=== PATIENT | male | born 1965 | race Caucasian/White ===

== ENCOUNTER 2020-10-22 08:23 | Inpatient (IN) | payer OTHER ==
[~2020-10-22] VITALS: Ht 180.3 cm; Wt 124.7 kg
--- NOTE | 2020-10-22 08:47 | NUR ---
dr wick at bedside for eval.
--- NOTE | 2020-10-22 09:09 | NUR ---
pt to radiology for abdominal ct scan via [facility].
[2020-10-22 09:40] LABS: BASOPHILS % (AUTO) 0.3 % (0.0-2.0); EOSINOPHILS % (AUTO) 0.8 % (0.0-6.0); HEMATOCRIT 24 % (39-51); HEMOGLOBIN 8.2 g/dL (13.5-17.5); LYMPHOCYTES # (AUTO) 0.3 /CMM (0.8-4.8); LYMPHOCYTES % (AUTO) 4.4 % (20.0-44.0); MEAN CORPUSCULAR HGB CONC 34 g/dl (31.0-36.0); MEAN CORPUSCULAR VOLUME 97 fL (80-96); MONOCYTES # (AUTO) 0.9 /CMM (0.1-1.30); MONOCYTES % (AUTO) 10.8 % (2.0-12.0); NEUTROPHILS # (AUTO) 6.7 /CMM (1.8-8.9); NEUTROPHILS % (AUTO) 83.7 % (43.0-81.0); PLATELET COUNT (AUTO) 139 /CMM (150-450); RED BLOOD CELL COUNT(AUTO) 2.51 MIL/uL (4.5-6.0)
[2020-10-22 10:16] LABS: ALBUMIN 2.4 g/dL (3.4-5.0); BILIRUBIN,DIRECT 1.1 mg/dL (0.0-0.2); BILIRUBIN,TOTAL 2.3 mg/dL (0.2-1.0); CALCIUM, SERUM 8.8 mg/dL (8.5-10.1); CREATININE 4.6 mg/dL (0.6-1.3); POTASSIUM 4.2 mmol/L (3.5-5.1); TOTAL PROTEIN, SERUM 5.4 g/dL (6.4-8.2)
--- NOTE | 2020-10-22 10:18 | NUR ---
Gail garica in ED - 10/22/20 at 1020 by SHAWN pt still noted to still be very cold. yony felix noted to be hypothermic. requested for rasheeda smith.
--- NOTE | 2020-10-22 10:27 | NUR ---
PAGED EPIC CURTAIN STITCHER FOR PENDING ADMISSION
[2020-10-22] MEDS ORDERED: LACTULOSE 10 G/15 ML UDC (PYXIS) PO ONE (10:30)
[2020-10-22] MEDS ORDERED: LACTULOSE 10 G/15 ML UDC (PYXIS) ONE ×3 (10:32→19:32)
--- NOTE | 2020-10-22 12:05 | NUR ---
radiology md dr giraldo at bedside for ultrasound guided paracentesis.
[2020-10-22] MEDS ORDERED: ALBUMIN 25% 12.5 GM/50 ML BOTTLE IV ONE (12:30)
[2020-10-22] MEDS ORDERED: ALBUMIN 25% 50 ML IV ONE ×2 (12:47→13:04)
[2020-10-22] MEDS ORDERED: Z GUARD REMEDY 2 OZ OINT TP PRN (15:00)
[2020-10-22] MEDS ORDERED: ACETAMINOPHEN 325 MG TABLET PO PRN (15:00)
[2020-10-22] MEDS ORDERED: HYDROCODONE/APAP 5/325MG TABLET PO PRN (15:00)
--- NOTE | 2020-10-22 16:55 | NUR ---
negative rapid covid test.
--- NOTE | 2020-10-22 19:19 | NUR ---
report to clayton moulton for luz
[2020-10-22] MEDS: LACTULOSE 10 G/15 ML UDC (PYXIS) PO SCH (19:30)
--- NOTE | 2020-10-22 19:59 | NUR ---
ROOM 314-2
--- NOTE | 2020-10-22 20:11 | NUR ---
GAVE REPORT TO WILVER JOHNSTON FOR MATEUS
[2020-10-22 21:00] VITALS: BP 155/69
--- NOTE | 2020-10-22 21:06 | NUR ---
ANKLE PATCH MOLDER: ADMISSION 54 Y/O male, patient is A/O x3 Forgetful. On room air tolerating well. Skin checked done, left heel non blanchable redness. Ari groins redness and scrotal swelling. Had large BM, care rendered, made comfortable in bed. Leads applied for Tele monitor.
[2020-10-23] VITALS (7 sets, daily range): BP systolic 100–113; BP diastolic 54–62
[2020-10-23] MEDS ORDERED: ALBUMIN 25% 100 ML IV ONE (00:20)
[2020-10-23] MEDS: ALBUMIN 25% 25 GM in PREMIX 1 EA IV SCH ×2 (00:26→12:21)
[2020-10-23] MEDS: LACTULOSE 10 G/15 ML UDC (PYXIS) PO SCH ×4 (01:06→17:59)
[2020-10-23 06:19] LABS: BILIRUBIN,URINE NEGATIVE (NEGATIVE); COLOR,URINE YELLOW (YELLOW); LEUKOCYTE ESTERASE ,URINE NEGATIVE (NEGATIVE); NITRITE, URINE NEGATIVE (NEGATIVE); PROTEIN,URINE NEGATIVE (NEGATIVE); UGLUCOSE NEGATIVE (NEGATIVE); UROBILINOGEN,URINE 0.2 EU/dL (0.2)
[2020-10-23 06:52] LABS: BASOPHILS % (AUTO) 0.2 % (0.0-2.0); EOSINOPHILS % (AUTO) 1.5 % (0.0-6.0); HEMATOCRIT 21 % (39-51); HEMOGLOBIN 7.2 g/dL (13.5-17.5); LYMPHOCYTES # (AUTO) 0.3 /CMM (0.8-4.8); LYMPHOCYTES % (AUTO) 8.8 % (20.0-44.0); MEAN CORPUSCULAR HGB CONC 34 g/dl (31.0-36.0); MEAN CORPUSCULAR VOLUME 95 fL (80-96); MONOCYTES # (AUTO) 0.4 /CMM (0.1-1.30); MONOCYTES % (AUTO) 10.7 % (2.0-12.0); NEUTROPHILS % (AUTO) 78.8 % (43.0-81.0); PLATELET COUNT (AUTO) 94 /CMM (150-450); RED BLOOD CELL COUNT(AUTO) 2.19 MIL/uL (4.5-6.0); WHITE BLOOD COUNT (AUTO) 3.8 K/uL (4.3-11.0)
[2020-10-23 07:00] LABS: CREATININE, URINE 176.6 MG/DL (30.0-125.0); URINE TOTAL PROTEIN 14.8 mg/dL (0-11.9)
--- NOTE | 2020-10-23 07:06 | NUR ---
FROZEN PIE MAKER: END OF SHIFT REPORT Stable oxygen on room air, 100%. Sinus Rhythm HR 73 in the Tele monitor. Abdomen rounded, firmed and distended, s/p US Guided Paracentesis with 4.2 L fluids output 10/22/20. Elevated Ammonia level, on Lactulose q6hour. Had large BM this shift. Fall precaution maintained. Endorsed to WILVER Gutierrez for continuity of care.
[2020-10-23 07:26] LABS: ALBUMIN 2.7 g/dL (3.4-5.0); BILIRUBIN,TOTAL 3.1 mg/dL (0.2-1.0); CALCIUM, SERUM 8.5 mg/dL (8.5-10.1); CREATININE 4.5 mg/dL (0.6-1.3); MAGNESIUM 2.9 mg/dL (1.8-2.4); PHOSPHORUS 5.1 mg/dL (2.5-4.9); THYROID STIMULATING HORMONE 2.035 uIU/mL (0.358-3.74); TOTAL PROTEIN, SERUM 5.2 g/dL (6.4-8.2)
[2020-10-23] MEDS: PANTOPRAZOLE 40 MG TABLET.DR PO SCH (08:17)
--- NOTE | 2020-10-23 08:35 | NUR ---
WOUND CARE CONSULT: PT PRESENTS WITH HUGE ABDOMEN, RASHES TO ABDOMINAL FOLDS AND GROIN FOLDS, PERINEUM, PRESENT ON ADMISSION. SOME DISCOLORED AREAS NOTED TO BUTTOCK, LOWER EXTREMITIES AND LEFT HEEL, NO TENDERNESS. RECOMMENDATIONS MADE FOR SKIN PROTECTION. DISCUSSED WITH NURSING STAFF. MD IN AGREEMENT WITH PLAN OF CARE.
--- NOTE | 2020-10-23 09:00 | NUR ---
MS/RN Medications Morning medications administered as ordered, able to swallow pills whole.
[2020-10-23 11:20] LABS: EOSINOPHILS % (MANUAL) 2 % (0-4); LYMPHOCYTES % (MANUAL) 6 % (16-48); MONOCYTES % (MANUAL) 4 % (0-11.0); MYELOCYTES % 1 % (0-0); NEUTROPHILS % (MANUAL) 87 (42-76)
--- NOTE | 2020-10-23 12:00 | NUR ---
MS/RN S/B Dr Alba Seen by Dr Alba - labs ordered for tomorrow.
[2020-10-23] MEDS: CLOTRIMAZOLE 1% 15 GM TUBE TP SCH ×2 (12:21→17:59)
--- NOTE | 2020-10-23 12:59 | NUR ---
MS/supervisor pipeline consult. Psych consults ordered as patient reporting that he has been experiencing visual hallucinations for past couple weeks.
[2020-10-23 14:10] LABS: EOSINOPHIL,URINE None Seen
--- NOTE | 2020-10-23 18:49 | NUR ---
MS/RN End note Patient remains in stable condition. Will endorse to night guard.
--- NOTE | 2020-10-23 22:00 | NUR ---
MS ANTHONY INITIAL NOTES Received report from am nurse and seen pt in bed awake and alert watching TV at this time. noticed pt abdomen distended and present of abdominal hernia denies any pain or any discomfort. No signs of any acute distress noted in room air. pt re-oriented where he at and how to used the call light system. kept him warm and comfortable at all times. kept him HOB elevated. and place call light at reach. bed in low and lock in position with side rails x2 up and bed alarm set for safety.
[2020-10-24] MEDS: LACTULOSE 10 G/15 ML UDC (PYXIS) PO SCH ×4 (00:26→17:12)
[2020-10-24] MEDS: PANTOPRAZOLE 40 MG TABLET.DR PO SCH (06:56)
[2020-10-24 06:59] LABS: BASOPHILS % (AUTO) 0.1 % (0.0-2.0); EOSINOPHILS % (AUTO) 1.9 % (0.0-6.0); HEMATOCRIT 22 % (39-51); HEMOGLOBIN 7.6 g/dL (13.5-17.5); LYMPHOCYTES # (AUTO) 0.4 /CMM (0.8-4.8); LYMPHOCYTES % (AUTO) 7.2 % (20.0-44.0); MEAN CORPUSCULAR HGB CONC 35 g/dl (31.0-36.0); MEAN CORPUSCULAR VOLUME 94 fL (80-96); MONOCYTES # (AUTO) 0.6 /CMM (0.1-1.30); MONOCYTES % (AUTO) 12.1 % (2.0-12.0); NEUTROPHILS # (AUTO) 3.9 /CMM (1.8-8.9); NEUTROPHILS % (AUTO) 78.7 % (43.0-81.0); PLATELET COUNT (AUTO) 99 /CMM (150-450); WHITE BLOOD COUNT (AUTO) 4.9 K/uL (4.3-11.0)
[2020-10-24 07:12] LABS: ALBUMIN 2.5 g/dL (3.4-5.0); CALCIUM, SERUM 8.4 mg/dL (8.5-10.1); CREATININE 4.3 mg/dL (0.6-1.3); MAGNESIUM 2.9 mg/dL (1.8-2.4); PHOSPHORUS 4.5 mg/dL (2.5-4.9); POTASSIUM 3.6 mmol/L (3.5-5.1); TOTAL PROTEIN, SERUM 5.2 g/dL (6.4-8.2)
--- NOTE | 2020-10-24 07:42 | NUR ---
ms forming mill operator closing notes pt awake and alert stable and no acute distress noted. have 4 x bowel movement because he's taking lactulose for his ammonia level. denies any pain or any discomfort. no n/v noted. morning care done and all due meds given kept him warm and comfortable at all times. reposition him for comfort on semi fowlers position with side rails x2 up and bed alarm set for safety. will endorse to am nurse for continuity of care. place call light at reach.
[2020-10-24 08:00] VITALS: BP 103/60
[2020-10-24 08:07] LABS: PTH, INTACT 28 pg/mL (15-65)
[2020-10-24 10:07] LABS: *SPE A/G RATIO 1.3 (0.7-1.7); *SPE ALBUMIN 2.8 g/dL (2.9-4.4); *SPE ALPHA-1-GLOBULIN 0.1 g/dL (0.0-0.4); *SPE ALPHA-2-GLOBULIN 0.5 g/dL (0.4-1.0); *SPE BETA GLOBULIN 0.6 g/dL (0.7-1.3); *SPE GLOBULIN, TOTAL 2.2 g/dL (2.2-3.9); *SPE M-SPIKE Not Observed g/dL (Not Observed)
[2020-10-24] MEDS: CLOTRIMAZOLE 1% 15 GM TUBE TP SCH ×2 (10:18→17:11)
[2020-10-24 16:00] VITALS: BP 120/65
[2020-10-24] MEDS: ALBUMIN 25% 25 GM in PREMIX 1 EA IV SCH ×2 (17:12→22:20)
--- NOTE | 2020-10-24 18:00 | NUR ---
Patient with VSS, afebrile throughout shift. Phsyc consult completed. Labs to be drawn in AM. Needs met at this time. Will endorse to night nurse.
--- NOTE | 2020-10-24 19:30 | NUR ---
ms knock up assembler initial notes received report from am nurse and seen pt in bed awake and alert with albumin still infusing on his left wrist patent and intact. pt resting with eyes closed but easily arouse to stimuli and touch. denies any pain or any discomfort. kept him warm and comfortable at all times. place call light at reach. will continue monitoring.
[2020-10-24 20:00] VITALS: BP 109/64
--- NOTE | 2020-10-25 | NUR ---
ms abdiel notes pt sleeping comfortably in bed without any acute distress noted. breathing even and unlabored. kept him warm and comfortable at all times. will continue monitoring. place call light at reach.
[2020-10-25] MEDS: LACTULOSE 10 G/15 ML UDC (PYXIS) PO SCH ×6 (00:10→23:40)
[2020-10-25] MEDS: ALBUMIN 25% 25 GM in PREMIX 1 EA IV SCH ×2 (04:13→09:58)
[2020-10-25 07:10] LABS: BASOPHILS % (AUTO) 0.4 % (0.0-2.0); EOSINOPHILS % (AUTO) 1.4 % (0.0-6.0); HEMATOCRIT 22 % (39-51); HEMOGLOBIN 7.7 g/dL (13.5-17.5); LYMPHOCYTES # (AUTO) 0.2 /CMM (0.8-4.8); LYMPHOCYTES % (AUTO) 4.3 % (20.0-44.0); MEAN CORPUSCULAR HGB CONC 35 g/dl (31.0-36.0); MEAN CORPUSCULAR VOLUME 96 fL (80-96); MONOCYTES # (AUTO) 0.4 /CMM (0.1-1.30); MONOCYTES % (AUTO) 8.3 % (2.0-12.0); NEUTROPHILS # (AUTO) 3.6 /CMM (1.8-8.9); NEUTROPHILS % (AUTO) 85.6 % (43.0-81.0); PLATELET COUNT (AUTO) 85 /CMM (150-450); RED BLOOD CELL COUNT(AUTO) 2.31 MIL/uL (4.5-6.0); WHITE BLOOD COUNT (AUTO) 4.2 K/uL (4.3-11.0)
[2020-10-25] MEDS: PANTOPRAZOLE 40 MG TABLET.DR PO SCH (07:30)
--- NOTE | 2020-10-25 07:35 | NUR ---
MS SOFTWARE DEVELOPMENT COORDINATOR CLOSING NOTES PT REMAINS SLEEPING COMFORTABLY IN BED WITHOUT ANY DISTRESS OR ANY DISCOMFORT NOTED. MORNING CARE DONE AND ALL DUE MEDS GIVEN. REPOSITION HIM FOR COMFORT AND KEPT HIM COMFORTABLE AT ALL TIMES. BE DIN LOW AND LOCK IN POSITION. SIDE RAILS X2 UP AND PLACE CALL LIGHT AT REACH. BED ALARMS SET FOR SAFETY. ENDORSE TO AM NURSE .
[2020-10-25 07:52] LABS: ALBUMIN 3.2 g/dL (3.4-5.0); BILIRUBIN,TOTAL 2.2 mg/dL (0.2-1.0); CALCIUM, SERUM 8.6 mg/dL (8.5-10.1); CREATININE 4.4 mg/dL (0.6-1.3); MAGNESIUM 3.1 mg/dL (1.8-2.4); PHOSPHORUS 4.7 mg/dL (2.5-4.9); POTASSIUM 3.8 mmol/L (3.5-5.1); TOTAL PROTEIN, SERUM 5.7 g/dL (6.4-8.2)
--- NOTE | 2020-10-25 07:58 | NUR ---
RN Opening note Received patient in bed, sleeping, able to responds all stimuli, Pt does no appears pain or distress. Skin is warm to touch keep clean/dry intact IV site, respiratory even and unlabored on room air O2sat 98%. Kept locked bed with elevated HOB for aspiration precaution and ensure airway and lowest bed foe safety. Call light within reach, will continue to monitor.
[2020-10-25 08:19] VITALS: BP 104/56
[2020-10-25] MEDS: CLOTRIMAZOLE 1% 15 GM TUBE TP SCH ×2 (09:20→17:42)
--- NOTE | 2020-10-25 16:32 | NUR ---
Patient received discharge to home, but patient unable to stay awake, ambulatory and no one take take car of the patient. Informed CM and MD regarding above.
[2020-10-25 16:49] VITALS: BP 104/58
--- NOTE | 2020-10-25 18:00 | NUR ---
RN closing Patient in bed resting, does no appears distress or discomfort. Patient dull responding by touch, pain, and name. Skin is warm to touch, keep clean/dry, intact midline on right upper arm. Respiratory even and unlabored on room air, O2sat 98%. Patient received d/c to home, but not safe to go home due to patient is not awake, un able to ambulatory and roommate does not want to care of patient. Contact MD x 2, but no response, also requested PT evaluation at same time. Kept elevated HOB for ensure air way and aspiration precaution and lowest bed for safety. Call light within reach, will endorse manager night
--- NOTE | 2020-10-25 19:52 | NUR ---
OPENING NOTES PT RECEIVED BEDSIDE. ALERT AND ORIENTED X1 -2. PT LETHARGIC. RESPONDS TO NAME AND LIGHT TOUCH. CALM, COOPERATIVE. PT WARM TO TOUCH. CLEAN, DRY SKIN. IV ACCESS LEFT WRIST #22. INTACT, PATENT, FLUSHES WELL. NO OCCLUSION. NO INFILTRATION. SAFETY PRECAUTIONS IN PLACE. BED LOCKED. LOWEST POSITION. SEMI FOWLERS POSITION. CALL LIGHT WITHIN REACH. WILL CONTINUE TO MONITOR. WILL CONTINUE PLAN OF CARE.
[2020-10-25 20:00] VITALS: BP 100/54
--- NOTE | 2020-10-25 23:40 | NUR ---
RN NOTE - MEDICATION PT A/O X2. PT REFUSED LACTULOSE. EXPLAINED REASON FOR MEDICATION, MODE OF ACTION AND BENEFITS. PT REFUSED. PT STATED "NO, NO, NO".
[2020-10-26] MEDS: LACTULOSE 10 G/15 ML UDC (PYXIS) PO SCH ×3 (05:36→17:35)
--- NOTE | 2020-10-26 05:37 | NUR ---
RN NOTE - LACTULOSE PT REFUSED SCHEDULED LACTULOSE. EXPLAINED MODE OF ACTION AND BENEFITS. PT DENIED. PT APPEARED RESTLESS. STATED "NO, NO, NO"
--- NOTE | 2020-10-26 07:25 | NUR ---
RN closing Patient in bed resting, does no appears distress or discomfort. Patient dull responding by touch, pain, and name. Skin is warm to touch, keep clean/dry, intact midline on right upper arm. Respiratory even and unlabored on room air, O2sat 98%. Patient received d/c to home, but not safe to go home due to patient is not awake, unable to ambulatory and roommate does not want to care of patient. Ammonia level high 142. MD NOTIFIED. Kept elevated HOB for ensure air way and aspiration precaution and lowest bed for safety. Call light within reach. pt refused night meds. see rn notes. will endorse upcoming shift
[2020-10-26] MEDS: PANTOPRAZOLE 40 MG TABLET.DR PO SCH (07:30)
[2020-10-26 08:00] VITALS: BP_SYST 110; BP_SYST 116; BP_DIAS 55; BP_DIAS 61
--- NOTE | 2020-10-26 08:30 | NUR ---
RN OPENING NOTE Patient is in bed, moaning, not able to open eyes, only moans in response to verbal communication and touch. Patient has temp of 100.9F. MD has been notified and awaiting for response. Patient given cooling measures. Bed is in lowest position, side rails x2 in upright position, call light is within reach, fall safety and aspiration precautions enforced. Will continue with plan of care.
[2020-10-26] MEDS: CLOTRIMAZOLE 1% 15 GM TUBE TP SCH ×2 (09:41→17:33)
[2020-10-26 11:51] LABS: BASOPHILS % (AUTO) 0.2 % (0.0-2.0); HEMATOCRIT 24 % (39-51); HEMOGLOBIN 8.1 g/dL (13.5-17.5); LYMPHOCYTES # (AUTO) 0.1 /CMM (0.8-4.8); LYMPHOCYTES % (AUTO) 2.6 % (20.0-44.0); MEAN CORPUSCULAR HGB CONC 34 g/dl (31.0-36.0); MEAN CORPUSCULAR VOLUME 95 fL (80-96); MONOCYTES # (AUTO) 0.5 /CMM (0.1-1.30); MONOCYTES % (AUTO) 8.5 % (2.0-12.0); NEUTROPHILS # (AUTO) 4.9 /CMM (1.8-8.9); NEUTROPHILS % (AUTO) 88.7 % (43.0-81.0); PLATELET COUNT (AUTO) 96 /CMM (150-450); WHITE BLOOD COUNT (AUTO) 5.5 K/uL (4.3-11.0)
[2020-10-26 12:05] LABS: ALBUMIN 3.1 g/dL (3.4-5.0); CALCIUM, SERUM 8.7 mg/dL (8.5-10.1); CREATININE 4.2 mg/dL (0.6-1.3); MAGNESIUM 2.9 mg/dL (1.8-2.4); PHOSPHORUS 3.7 mg/dL (2.5-4.9); POTASSIUM 4.1 mmol/L (3.5-5.1); TOTAL PROTEIN, SERUM 5.6 g/dL (6.4-8.2)
[2020-10-26 12:29] LABS: ABG BASE EXCESS -6.9 mmol/L; ABG OXYGEN SATURATION 97.9 % (92.0-98.5); ABG PCO2 16.3 mmHg (35.0-45.0); ABG PH 7.554 (7.350-7.450); ABG PO2 139.6 mmHg (75.0-100.0); COHb 0.3 % (0.5-1.5); MetHb 0.7 % (0.0-1.5); O2Hb 96.9 % (94.0-97.0); SITE, ABG Right Radial; VENT MODE, BG ROOM AIR
--- NOTE | 2020-10-26 12:44 | NUR ---
RN NOTE Patient is lethargic, not responsive, unresponsive to pain and sternal rub, breathing is labored, using accessory muscles, o2 sat is 100% on room air. BP 105/55, HR 75, RR 22. Reported to MD and MD gave orders for NGT insertion, despite risk for esophageal varices, ok per Dr. Alba to still insert NGT. Stat ABG ordered. NGT inserted and STAT CXR ordered. Will continue to monitor.
[2020-10-26 12:45] VITALS: BP 105/55
[2020-10-26 13:11] LABS: LYMPHOCYTES % (MANUAL) 3 % (16-48); MONOCYTES % (MANUAL) 9 % (0-11.0); NEUTROPHILS % (MANUAL) 88 (42-76)
--- NOTE | 2020-10-26 14:39 | NUR ---
RN NOTE Advanced NGT and it is currently at 74cm. Vital signs remain stable. Will continue to monitor.
[2020-10-26 14:40] VITALS: BP 107/55
--- NOTE | 2020-10-26 18:44 | NUR ---
RN CLOSING NOTE Patient is in bed, open eyes in response to sternal rub, pupillary reaction intact, patient is snoring, labored breathing with accessory muscle use. NGT in place 74cm., flushing well, patent, correct placement. All patient needs met, all due medications given. patient kept clean and dry, skin protections measures implemented. Bed is in lowest position, side rails x2 in upright position, call light is within reach, fall safety and aspiration precautions enforced. Will endorse to client service manager for MATEUS. .
--- NOTE | 2020-10-26 19:30 | NUR ---
MS RN OPENING NOTE RECEIVED PATIENT IN BED. PATIENT IS VERY LETHARGIC, NONVERBAL. PATIENT OPENS EYES TO STERNAL RUB. TOLERATING ROOM AIR. RESPIRATIONS ARE EVEN AND UNLABORED NO S/S SOB NOTED. NG TUBE IN LEFT NARE 74CM, CLAMPED. NO S/S PAIN NOTED. BS TAKEN 103. IN NO APPARENT DISTRESS. VITAL SIGN STABLE. INFORMED DISABILITY EXAMINER NORMA OF PATIENT STATUS, ALREADY AWARE. IV ACCESS IN LEFT WRIST #22 RUNNING NS@50ML/HR. BED IS LOW AND LOCKED, HOB ELEVATED IN HIGH FOWLERS, SIDE RIALS UP X3, CALL LIGHT WITHIN REACH. WILL MONITOR FOR CHANGES IN MENTAL STATUS.WILL CONTINUE TO MONITOR THROUGHOUT SHIFT
[2020-10-26 20:00] VITALS: BP 115/73
[2020-10-26] MEDS: IV NS 0.9% 1,000 ML IV PRN (20:28)
[2020-10-27] MEDS: LACTULOSE 10 G/15 ML UDC (PYXIS) PO SCH ×4 (00:07→17:00)
--- NOTE | 2020-10-27 07:03 | NUR ---
MS RN CLOSING NOTE PATIENT RESTING IN BED. PATIENT REMAINS VERY LETHARGIC, NOW MOANING, NOW EASILY STIMULATED WITH STERNAL RUB BY YELLING. TOLERATING ROOM AIR. NO RESP DISTRESS. NG TUBE MAITAINED IN LEFT NARE 74CM, CLAMPED. NO S/S PAIN NOTED.NO DISTRESS. IV ACCESS IN LEFT WRIST #22 RUNNING NS@50ML/HR. BED REMAINS LOW AND LOCKED, HOB ELEVATED IN HIGH FOWLERS, SIDE RIALS UP X3, CALL LIGHT WITHIN REACH. WILL ENDORSE TO NEXT SHIFT
[2020-10-27 07:44] LABS: BASOPHILS % (AUTO) 0.2 % (0.0-2.0); HEMATOCRIT 23 % (39-51); HEMOGLOBIN 7.8 g/dL (13.5-17.5); LYMPHOCYTES # (AUTO) 0.3 /CMM (0.8-4.8); LYMPHOCYTES % (AUTO) 5.9 % (20.0-44.0); MEAN CORPUSCULAR HGB CONC 35 g/dl (31.0-36.0); MEAN CORPUSCULAR VOLUME 94 fL (80-96); MONOCYTES # (AUTO) 0.5 /CMM (0.1-1.30); MONOCYTES % (AUTO) 12.7 % (2.0-12.0); NEUTROPHILS # (AUTO) 3.5 /CMM (1.8-8.9); NEUTROPHILS % (AUTO) 80.2 % (43.0-81.0); PLATELET COUNT (AUTO) 86 /CMM (150-450); RED BLOOD CELL COUNT(AUTO) 2.42 MIL/uL (4.5-6.0); WHITE BLOOD COUNT (AUTO) 4.3 K/uL (4.3-11.0)
[2020-10-27 08:00] VITALS: BP 114/56
[2020-10-27 08:06] LABS: ALBUMIN 2.8 g/dL (3.4-5.0); BILIRUBIN,TOTAL 3.1 mg/dL (0.2-1.0); CALCIUM, SERUM 8.5 mg/dL (8.5-10.1); MAGNESIUM 2.9 mg/dL (1.8-2.4); PHOSPHORUS 3.9 mg/dL (2.5-4.9); POTASSIUM 3.6 mmol/L (3.5-5.1); TOTAL PROTEIN, SERUM 5.3 g/dL (6.4-8.2)
[2020-10-27] MEDS: PANTOPRAZOLE 40 MG TABLET.DR PO SCH (08:44)
[2020-10-27] MEDS: CLOTRIMAZOLE 1% 15 GM TUBE TP SCH ×2 (08:45→16:59)
--- NOTE | 2020-10-27 13:48 | NUR ---
MS PETTIT NEW ORDER PER DR NUÑEZ, MIDLINE INSERTION ORDERED
[2020-10-27 16:00] VITALS: BP 116/79
--- NOTE | 2020-10-27 18:44 | NUR ---
MS/RN NOTE UPON CLEANING THE PATIENT, NOTED THAT THE PATIENT IS ABOUT 2 INCHES PULLED OUT FROM ORIGINAL NUMBER. REINTERRED THE NG TUBE AND ORDERED PLACE FOR STAT CHEST X-RAY PER DR NUÑEZ. WILL ENDORSE TO SWITCH OPERATOR TO FOLLOW UP RESULT.
--- NOTE | 2020-10-27 19:06 | NUR ---
MS RN CLOSING NOTE PATIENT RESTING IN BED. PATIENT REMAINS VERY LETHARGIC, RESPONDS TO TACTILE STIMULI BY YELLING/MOANING. TOLERATING ROOM AIR. NO RESP DISTRESS. WAITING FOR PLACEMENT FROM CXR FOR NG TUBE. NO S/S PAIN NOTED. NO DISTRESS. MIDLINE IN MARY. BED REMAINS LOW AND LOCKED, HOB ELEVATED IN SEMI FOWLERS, SIDE RIALS UP X3, CALL LIGHT WITHIN REACH. TRANSFERRING TO ICU. WILL ENDORSE TO NEXT SHIFT
[2020-10-27 20:00] VITALS: BP_SYST 129; BP_SYST 133; BP_DIAS 56; BP_DIAS 88
--- NOTE | 2020-10-27 21:56 | NUR ---
ms rn note iron carrier SHIPYARD PAINTER APPRENTICE Tracy Galeana saw the patient ordered stat ABG. order noted and carried out. called RT to draw ABG
[2020-10-27 22:19] LABS: ABG BASE EXCESS -7.4 mmol/L; ABG OXYGEN SATURATION 98.2 % (92.0-98.5); ABG PCO2 17.9 mmHg (35.0-45.0); ABG PH 7.515 (7.350-7.450); ABG PO2 119.7 mmHg (75.0-100.0); AaDO2 8.6 mmHg; COHb 0.3 % (0.5-1.5); MetHb 0.5 % (0.0-1.5); O2Hb 97.4 % (94.0-97.0); SITE, ABG Left Radial; VENT MODE, BG Room Air
--- NOTE | 2020-10-27 22:52 | NUR ---
television cameraman note informed RECOVERY ROOM NURSE Tracy Galeana the [facility] continue to monitor, transfer patient to tele status. patient tele reading shows sinus rhythm hr 87. will continue to monitor throughout shift.
[2020-10-28] VITALS (16 sets, daily range): BP systolic 97–141; BP diastolic 60–78
[2020-10-28] MEDS: LACTULOSE 10 G/15 ML UDC (PYXIS) PO SCH ×4 (00:21→18:24)
[2020-10-28] MEDS: IV NS 0.9% 1,000 ML IV PRN ×2 (05:30→13:42)
--- NOTE | 2020-10-28 07:15 | NUR ---
telecommunications equipment installer note ordered stat ekg , classroom monitor states patient has vtach 150. call rt to do ekg.
[2020-10-28 07:49] LABS: BASOPHILS % (AUTO) 0.2 % (0.0-2.0); EOSINOPHILS % (AUTO) 0.8 % (0.0-6.0); HEMATOCRIT 23 % (39-51); LYMPHOCYTES # (AUTO) 0.3 /CMM (0.8-4.8); MEAN CORPUSCULAR HGB CONC 34 g/dl (31.0-36.0); MEAN CORPUSCULAR VOLUME 94 fL (80-96); MONOCYTES # (AUTO) 0.7 /CMM (0.1-1.30); NEUTROPHILS # (AUTO) 5.6 /CMM (1.8-8.9); PLATELET COUNT (AUTO) 92 /CMM (150-450); RED BLOOD CELL COUNT(AUTO) 2.49 MIL/uL (4.5-6.0); WHITE BLOOD COUNT (AUTO) 6.8 K/uL (4.3-11.0)
[2020-10-28 07:52] LABS: ALBUMIN 2.8 g/dL (3.4-5.0); BILIRUBIN,TOTAL 3.5 mg/dL (0.2-1.0); CALCIUM, SERUM 8.6 mg/dL (8.5-10.1); CREATININE 3.9 mg/dL (0.6-1.3); MAGNESIUM 2.9 mg/dL (1.8-2.4); PHOSPHORUS 4.2 mg/dL (2.5-4.9); POTASSIUM 3.8 mmol/L (3.5-5.1); TOTAL PROTEIN, SERUM 5.3 g/dL (6.4-8.2)
--- NOTE | 2020-10-28 08:29 | NUR ---
MS WILVER OPENING NOTE RECEIVED PATIENT IN BED. PATIENT IS VERY LETHARGIC, NONVERBAL, PATIENT OPENS EYES TO NAME, MOANS. TOLERATING ROOM AIR. RESPIRATIONS ARE EVEN AND UNLABORED NO S/S SOB NOTED. NG TUBE IN LEFT NARE 74CM, CLAMPED AT THIS TIME. NO S/S PAIN NOTED. IN NO APPARENT DISTRESS. IV ACCESS IN MARY MIDLINE RUNNING NS@50ML/HR. BED IS LOW AND LOCKED, HOB ELEVATED IN HIGH FOWLERS, SIDE RIALS UP X3, CALL LIGHT WITHIN REACH. WILL MONITOR FOR CHANGES IN MENTAL STATUS.WILL CONTINUE TO MONITOR THROUGHOUT SHIFT Addendum: 10/28/20 at 0831 by STEVEN LEONG RN TIME 10/27/20 AT 1930
--- NOTE | 2020-10-28 08:31 | NUR ---
MS RN CLOSING NOTE PATIENT RESTING IN BED. MENTAL STATUS REMAINS THE SAME. NO REPS DISTRESS. NO S/S PAIN NOTED. NG TUBE IN PLACE, CLAMPED. DID HAVE AND EPISODE OF VTACH THIS AM. DR. CRUZ MADE AWARE OF FINDING, NO NEW ORDERD. IV ACCESS MAINTAINED IN MARY MIDLINE RUNNING NS@50ML/HR. BED REMAINS LOW AND LOCKED, HOB ELEVATED IN HIGH FOWLERS, SIDE RIALS UP X3, CALL LIGHT WITHIN REACH. WILL ENDORSE TO ONCOMING SHIFT
[2020-10-28] MEDS: PANTOPRAZOLE 40 MG TABLET.DR PO SCH (08:37)
[2020-10-28] MEDS: CLOTRIMAZOLE 1% 15 GM TUBE TP SCH ×2 (08:38→16:47)
--- NOTE | 2020-10-28 08:50 | NUR ---
MS/RN Labs Ammonia level 53, yesterday's level 45.
--- NOTE | 2020-10-28 10:23 | NUR ---
MS/RN S/B Dr Greenberg Seen by Dr Greenberg - kirk-fib on monitor, not a candidate for cardioversion or anticoagulation. Altered mental status possible secondary to uremia, hepatic failure and psychiatric illness.
--- NOTE | 2020-10-28 10:24 | NUR ---
MS/RN S/B Dr Walsh Seen by Dr Walsh - patient to be transferred to ICU for observation, may possibly require intubation to protect airway.
--- NOTE | 2020-10-28 11:00 | NUR ---
MS/metropolitan editor Patient transferred to ICU, room 263. Report given to Randell, all medications transferred with patient.
--- NOTE | 2020-10-28 11:30 | NUR ---
STRUCTURAL WELDER OPENING NOTE RECEIVED PT FROM 3W. LETHARGIC, NONVERBAL, OPENS EYES TO NAME. TOLERATING ROOM AIR SATURATING @100%. NO SOB NOTED. NG TUBE IN LEFT NARE 74CM. NO PAIN REPORTED. IV ACCESS AT MARY MIDLINE RUNNING NS@50ML/HR. SAFETY MEASURES IN PLACE. CALL LIGHT WITHIN REACH. BED LOCKED AND AT LOWEST POSITION. HOB ELEVATED. SIDE RAILS UP X3. WILL CONTINUE TO MONITOR.
--- NOTE | 2020-10-28 12:30 | NUR ---
RN NOTES ASKED DR. NUÑEZ IF HE WANTS PAGAN CATH INSERTED, SAID NOT NECESSARY.
--- NOTE | 2020-10-28 18:48 | NUR ---
UNDERGROUND UTILITY LOCATOR CLOSING NOTE PT RESTING IN BED. STILL LETHARGIC. TOLERATING ROOM AIR SATURATING @100%. NO SOB NOTED. NG TUBE IN LEFT NARE IN PLACE. NO PAIN REPORTED. MARY MIDLINE RUNNING NS@50ML/HR. NO SIGNIFICANT CHANGES THROUGHOUT THE SHIFT. SAFETY MEASURES IN PLACE. CALL LIGHT WITHIN REACH. BED LOCKED AND AT LOWEST POSITION. HOB ELEVATED. SIDE RAILS UP X3. WILL ENDORSE TO NIGHT NURSE FOR MATEUS.
--- NOTE | 2020-10-28 19:30 | NUR ---
SPACE PLANNER RCD PT W/DX HEPATIC ENCEPHALOPATHY. PT IS AWAKE DOES NOT FOLLOW COMMANDS. ONLY MOANS WHEN TOUCHED OR SPOKEN TO. NSR ON MONITOR. ON ROOM AIR. MEPILEX APPLIED TO SACRUM AND HEELS. NG TUBE TO LEFT NARE IN PLACE. MARY MIDLINE PATENT AND WITH BLOOD RETURN. NS @ 50 ML/HR. PT HOB AT 30 DEGREES. APPLIED SCDS AT THIS TIME.
--- NOTE | 2020-10-28 20:00 | NUR ---
METER SETTER PT NOTED WITH MULTIPLE ATTEMPTS REACHING FOR NG TUBE; PT DOES NOT FOLLOW DIRECTIONS. BSWR PLACED AT THIS TIME FOR PT SAFETY.
[2020-10-29] VITALS (24 sets, daily range): BP systolic 99–157; BP diastolic 54–103
--- NOTE | 2020-10-29 | NUR ---
BOBBIN COLLECTOR NO CHANGE IN MENTAL STATUS; RELEASED RESTRAINTS AND PT REACHES FOR NG TUBE. RESTRAINTS REMAIN IN PLACE FOR SAFETY.
[2020-10-29] MEDS: LACTULOSE 10 G/15 ML UDC (PYXIS) PO SCH ×5 (00:59→23:34)
[2020-10-29 05:00] LABS: BASOPHILS % (AUTO) 0.2 % (0.0-2.0); EOSINOPHILS % (AUTO) 1.1 % (0.0-6.0); HEMATOCRIT 22 % (39-51); HEMOGLOBIN 7.5 g/dL (13.5-17.5); LYMPHOCYTES # (AUTO) 0.3 /CMM (0.8-4.8); LYMPHOCYTES % (AUTO) 5.3 % (20.0-44.0); MEAN CORPUSCULAR HGB CONC 35 g/dl (31.0-36.0); MEAN CORPUSCULAR VOLUME 93 fL (80-96); MONOCYTES # (AUTO) 0.9 /CMM (0.1-1.30); MONOCYTES % (AUTO) 14.4 % (2.0-12.0); NEUTROPHILS # (AUTO) 5.1 /CMM (1.8-8.9); PLATELET COUNT (AUTO) 96 /CMM (150-450); RED BLOOD CELL COUNT(AUTO) 2.32 MIL/uL (4.5-6.0); WHITE BLOOD COUNT (AUTO) 6.4 K/uL (4.3-11.0)
[2020-10-29 05:15] LABS: ALBUMIN 2.8 g/dL (3.4-5.0); BILIRUBIN,TOTAL 3.7 mg/dL (0.2-1.0); CALCIUM, SERUM 8.4 mg/dL (8.5-10.1); CREATININE 4.2 mg/dL (0.6-1.3); MAGNESIUM 2.9 mg/dL (1.8-2.4); PHOSPHORUS 4.1 mg/dL (2.5-4.9); POTASSIUM 3.6 mmol/L (3.5-5.1); TOTAL PROTEIN, SERUM 5.1 g/dL (6.4-8.2)
[2020-10-29] MEDS: IV NS 0.9% 1,000 ML IV PRN (05:30)
--- NOTE | 2020-10-29 06:28 | NUR ---
CERAMIC RESEARCH ENGINEER PT REMAINS ALERT CONTINUOUSLY MOANING UNABLE TO BE REDIRECTED. VSS STABLE.
--- NOTE | 2020-10-29 07:30 | NUR ---
ICU OPENING NOTE PATIENT CURRENTLY IN BED, RESTLESS. ABLE TO NOD HEAD YES TO ANSWER SIMPLE QUESTION. SINUS RHYTHM CURRENTLY SHOWING ON TELE MONITOR. PATIENT HAS A L NARES NG TUBE, NO FEEDING RUNNING AT THIS TIME. PATIENT ON A RENAL STANDARD DIET. PATIENT HAS A R UPPER ARM MIDLINE RUNNING NS0.9% AT 50ML/HR. PATIENT CURRENTLY HAS BILATERAL SOFT WRIST RESTRAINTS ON, CIRCULATION CHECKED, WNL. ALL SAFETY MEASURES IN PLACE PER HOSPITAL POLICY. BED LOCKED IN LOWEST POSITION. CALL LIGHT WITHIN REACH. SIDE RAILS UP X2. WILL CONT TO MONITOR AND PROVIDE TREATMENT.
[2020-10-29] MEDS: PANTOPRAZOLE 40 MG TABLET.DR PO SCH (08:07)
[2020-10-29] MEDS: CLOTRIMAZOLE 1% 15 GM TUBE TP SCH ×2 (08:08→17:35)
[2020-10-29 08:24] LABS: ABG BASE EXCESS -8.2 mmol/L; ABG OXYGEN SATURATION 97.5 % (92.0-98.5); ABG PCO2 20.3 mmHg (35.0-45.0); ABG PH 7.469 (7.350-7.450); ABG PO2 140.7 mmHg (75.0-100.0); COHb 0.2 % (0.5-1.5); O2Hb 96.3 % (94.0-97.0); SITE, ABG Right Radial
[2020-10-29 09:05] LABS: IRON, SERUM 72 ug/dl (50-175); TOTAL IRON BINDING CAPACITY 109 ug/dl (250-450)
[2020-10-29 09:18] LABS: FERRITIN 277 ng/mL (8-388)
--- NOTE | 2020-10-29 10:08 | NUR ---
FATHER - LILLIE YAEL; PHONE NUMBER [phone] PLEASE KEEP FATHER UPDATED PRN BROTHER - GLENNA YAEL IS BROTHER, WILL CALL LATER FOR UPDATE
--- NOTE | 2020-10-29 14:05 | NUR ---
- GLENNA CONLEY PHONE NUMBER [phone] PRIMARY CONTACT REGARDING BROTHER'S CARE.
--- NOTE | 2020-10-29 18:48 | NUR ---
ICU CLOSING NOTE PATIENT CURRENTLY IN BED, SLEEPING. AROUSES EASILY. MORE RESPONSIVE BY END OF SHIFT. R UPPER ARM MIDLINE INTACT RUNNING N2 0.9 AT 50 ML/HR. ALL SAFETY MEASURES IN PLACE PER HOSPITAL POLICY. WILL ENDORSE TO HIGH LEAD YARDER NURSE FOR MATEUS.
--- NOTE | 2020-10-29 19:31 | NUR ---
SAP BUSINESS OBJECTS DEVELOPER OPENING NOTES: Rec'd pt in bed, awake, moaning and mumbling unclear speech. On room air, O2 WNL. No SOB or resp distress noted at this time. SR on tele monitor. Left NGT in place patent and flushed. MARY midline patent and flushed. NS infusing at 50ml/hr. Bilateral soft wrist restraints in place. Will check circulation per protocol. Rodas catheter in place patent and draining urine via gravity. Safety measures in place. Will continue to monitor.
[2020-10-30] VITALS (18 sets, daily range): BP systolic 110–143; BP diastolic 60–83
[2020-10-30] MEDS: IV NS 0.9% 1,000 ML IV PRN (01:35)
--- NOTE | 2020-10-30 04:22 | NUR ---
TOMBSTONE SETTER NOTE: Pt noted to have broken out of restraint and pulled out left NGT. Charge nurse aware. Reinserted left NGT, verified positive placement w/ Aamir Mejia RN. CXR ordered to verify placement.
[2020-10-30 04:49] LABS: BASOPHILS % (AUTO) 0.4 % (0.0-2.0); EOSINOPHILS % (AUTO) 2.3 % (0.0-6.0); HEMATOCRIT 22 % (39-51); HEMOGLOBIN 7.4 g/dL (13.5-17.5); LYMPHOCYTES # (AUTO) 0.4 /CMM (0.8-4.8); LYMPHOCYTES % (AUTO) 6.5 % (20.0-44.0); MEAN CORPUSCULAR HGB CONC 34 g/dl (31.0-36.0); MEAN CORPUSCULAR VOLUME 95 fL (80-96); MONOCYTES % (AUTO) 15.6 % (2.0-12.0); NEUTROPHILS # (AUTO) 4.6 /CMM (1.8-8.9); NEUTROPHILS % (AUTO) 75.2 % (43.0-81.0); PLATELET COUNT (AUTO) 109 /CMM (150-450); RED BLOOD CELL COUNT(AUTO) 2.29 MIL/uL (4.5-6.0); WHITE BLOOD COUNT (AUTO) 6.2 K/uL (4.3-11.0)
[2020-10-30 05:08] LABS: ALBUMIN 2.8 g/dL (3.4-5.0); BILIRUBIN,TOTAL 3.5 mg/dL (0.2-1.0); CALCIUM, SERUM 8.5 mg/dL (8.5-10.1); CREATININE 4.1 mg/dL (0.6-1.3); MAGNESIUM 2.9 mg/dL (1.8-2.4); PHOSPHORUS 3.6 mg/dL (2.5-4.9); POTASSIUM 3.4 mmol/L (3.5-5.1); TOTAL PROTEIN, SERUM 5.2 g/dL (6.4-8.2)
--- NOTE | 2020-10-30 05:30 | NUR ---
COOKEE NOTE: Pt attempting to pull at NGT. Explained risks and benefits. Pt states "I don't care". He continues to break release right hand from restraint and pull at tube.
[2020-10-30 05:40] LABS: NEUTROPHILS % (MANUAL) 85 (42-76)
[2020-10-30 05:41] LABS: EOSINOPHILS % (MANUAL) 1 % (0-4); LYMPHOCYTES % (MANUAL) 4 % (16-48); MONOCYTES % (MANUAL) 10 % (0-11.0)
[2020-10-30] MEDS: LACTULOSE 10 G/15 ML UDC (PYXIS) PO SCH ×4 (06:00→23:23)
--- NOTE | 2020-10-30 06:12 | NUR ---
BLUNGER NOTE: Pt removed hand from restraint again and removed NGT a second time. Stated "I don't want it". Explained risks and benefits and continues to refuse replacement NGT. Pt also unable to swallow. Attempted swallow eval, and pt not able to tolerate.
[2020-10-30] MEDS: PANTOPRAZOLE 40 MG TABLET.DR PO SCH (08:49)
[2020-10-30] MEDS: CLOTRIMAZOLE 1% 15 GM TUBE TP SCH ×2 (09:26→17:17)
--- NOTE | 2020-10-30 14:56 | NUR ---
PT COMPLAINS OF SHARP SCROTAL PAIN, PER MD MORALES, CANNOT ORDER PAIN MEDS DUE TO LIVER FAILURE. ICE PACK APPLIED TO SCROTUM
--- NOTE | 2020-10-30 17:50 | NUR ---
MS RN NOTES RECEIVED REPORT FROM KAYLENE. PATIENT WAS BROUGHT UP AROUND 1812. PATIENT VERBALIZING SOB. PUT THE PT ON NC 2LPM. VS BP 138/64 OK 80 RR 19 TEMP 97.5 SAO2 100% IV ACCESS MARY MIDLINE, INTACT, NS RUNNING @50 ML/HR. SAFETY MEASURES MAINTAINED. BED IN LOWEST POSITION, BRAKES LOCKED. SIDE RAILS UP X2. CALL LIGHT WITHIN REACH. WILL ENDORSE TO SUPERVISOR PERSONNEL CLERKS FOR MATEUS.
--- NOTE | 2020-10-30 18:00 | NUR ---
PT TRANSFERRED TO [facility] IN 3[facility]
--- NOTE | 2020-10-30 19:30 | NUR ---
MS RN NOTES RECEIVED ON BED A/O X 1-2,BREATHING NON LABORED,O2 IN USED AT2L/NC,WITH PAGAN CATH IN PLACE DRAINING YELLOWISH OUTPUT,WITH MARY MIDLINE INTACT AND PATENT,NS AT 50ML/HR RATE INFUSING WELL VIA IV PUMP.ABDOMEN DISTENDED,WITH UMBILICAL HERNIA NOTED.ON BILATERAL SOFT WRIST RESTRAINTS WITH ORDER FOR SAFETY,TRYING TO PULL OUT IV TUBINGS,FALL PRECAUTION OBSERVED,BED ON LOWEST POSITION AND LOCKED,BED ALARM TRIGGERED.CALL LIGHT IN REACH,NEEDS ANTICIPATED.
[2020-10-31] MEDS: IV NS 0.9% 1,000 ML IV PRN (00:47)
--- NOTE | 2020-10-31 02:30 | NUR ---
MS RN NOTES NO IV ACCESS,ABLE TO TAKE OUT HIS HANDS FROM RESTRAINTS AND HE PULLED OUT HIS MIDLINE SALINE LOCK.SCANTY BLEEDING NOTED.
[2020-10-31] MEDS: LACTULOSE 10 G/15 ML UDC (PYXIS) PO SCH ×3 (05:25→17:36)
--- NOTE | 2020-10-31 07:04 | NUR ---
MS RN NOTES ON BED A/O X1-2,STILL NO IV ACCES,WILL ENDORSE FOR MIDLINE INSERTION,CHARGE NURSE AWARE.IN NO ACUTE DISTRESS.
--- NOTE | 2020-10-31 07:30 | NUR ---
ms rn received on bed, awake,alert,oriented x1-2,not in any form of distress, respirations even and unlabored,no sob noted, lungs are diminished,a bdomen soft,positive bowel sounds,denies pain at this time, will monitor patient's condition.
[2020-10-31 08:00] VITALS: BP 117/60
[2020-10-31 08:01] LABS: BASOPHILS % (AUTO) 0.3 % (0.0-2.0); EOSINOPHILS % (AUTO) 3.3 % (0.0-6.0); HEMATOCRIT 23 % (39-51); HEMOGLOBIN 7.6 g/dL (13.5-17.5); LYMPHOCYTES # (AUTO) 0.5 /CMM (0.8-4.8); LYMPHOCYTES % (AUTO) 5.9 % (20.0-44.0); MEAN CORPUSCULAR HGB CONC 34 g/dl (31.0-36.0); MEAN CORPUSCULAR VOLUME 94 fL (80-96); NEUTROPHILS # (AUTO) 6.1 /CMM (1.8-8.9); NEUTROPHILS % (AUTO) 77.5 % (43.0-81.0); PLATELET COUNT (AUTO) 109 /CMM (150-450); WHITE BLOOD COUNT (AUTO) 7.8 K/uL (4.3-11.0)
[2020-10-31 08:31] LABS: ALBUMIN 2.9 g/dL (3.4-5.0); BILIRUBIN,TOTAL 3.5 mg/dL (0.2-1.0); CALCIUM, SERUM 8.5 mg/dL (8.5-10.1); CREATININE 3.8 mg/dL (0.6-1.3); POTASSIUM 3.3 mmol/L (3.5-5.1); TOTAL PROTEIN, SERUM 5.6 g/dL (6.4-8.2)
[2020-10-31] MEDS: CLOTRIMAZOLE 1% 15 GM TUBE TP SCH ×2 (09:00→18:29)
--- NOTE | 2020-10-31 09:00 | NUR ---
ms moulton breakfast served due meds given,tolerated well.
[2020-10-31] MEDS ORDERED: POTASSIUM CHLORIDE 20 MEQ TAB.PRT.SR PO ONE (10:30)
[2020-10-31] MEDS: PANTOPRAZOLE 40 MG TABLET.DR PO SCH (11:23)
[2020-10-31 16:00] VITALS: BP 105/66
--- NOTE | 2020-10-31 19:00 | NUR ---
ms rn on bed,no distress noted,all needs attended.
--- NOTE | 2020-10-31 19:30 | NUR ---
MS RN NOTES RECEIVED ON BED A/O X 1-2,BREATHING NON LABORED O2 IN USED AT 2L/NC ORDERED.NO IV ACCESS UPON ROUNDS AND RECEIVED REPORT.NOTED UMBILICAL HERNIA.BILATERAL SOFT RESTRAINTS IN USED FOR SAFETY,PULLING OUT IV ACCESS AND TRYING TO GET OUT OF BED.FALL PRECAUTION OBSERVED,BED ON LOWEST POSITION AND LOCKED.CALL LIGHT IN REACH,WILL CONTINUE TO MONITOR STATUS.
[2020-10-31 20:00] VITALS: BP 110/69
[2020-10-31 20:11] VITALS: BP 110/69
[2020-11-01] VITALS (22 sets, daily range): BP systolic 84–127; BP diastolic 46–81
--- NOTE | 2020-11-01 01:00 | NUR ---
MS RN NOTES NEW SALINE LOCK PLACE ON RIGHT WRIST #22,SECURED WITH KERLIX
[2020-11-01] MEDS: LACTULOSE 10 G/15 ML UDC (PYXIS) PO SCH ×5 (05:33→23:47)
--- NOTE | 2020-11-01 07:01 | NUR ---
MS RN NOTES CALM AND QUIET ON BED,HAD BM X 2 WITH LACTULOSE GIVEN.IN NO ACUTE DISTRESS.
--- NOTE | 2020-11-01 08:00 | NUR ---
RN OPENING NOTE PT IS A/O X1 AND DROWSY. PT IS CURRENTLY ON 2L O2 WITH O2 SAT OF 100%. SOB PRESENT AND SOME EPISODES OF DESATURATION. PT HAS SCROTAL EDEMA PRESENT WELL ABDOMINAL DISTENTION. PT IS CURRENTLY ON BR. FC PRESENT AND DRAINING WITH CLEAR YELLOW FLUID. HL PRESENT IN THE R FOREARM, 22G. SAFETY MEASURES IN PLACE. SIDE RAILS RAISED. BED LOWERED. CALL LIGHT WITHIN REACH. WILL CONTINUE TO MONITOR.
[2020-11-01 08:15] LABS: CALCIUM, SERUM 8.6 mg/dL (8.5-10.1); CREATININE 3.8 mg/dL (0.6-1.3)
[2020-11-01 08:17] LABS: BASOPHILS % (AUTO) 0.3 % (0.0-2.0); EOSINOPHILS % (AUTO) 1.9 % (0.0-6.0); HEMATOCRIT 22 % (39-51); HEMOGLOBIN 7.4 g/dL (13.5-17.5); LYMPHOCYTES # (AUTO) 0.4 /CMM (0.8-4.8); LYMPHOCYTES % (AUTO) 5.5 % (20.0-44.0); MEAN CORPUSCULAR HGB CONC 34 g/dl (31.0-36.0); MEAN CORPUSCULAR VOLUME 95 fL (80-96); MONOCYTES # (AUTO) 0.7 /CMM (0.1-1.30); MONOCYTES % (AUTO) 9.3 % (2.0-12.0); NEUTROPHILS # (AUTO) 6.3 /CMM (1.8-8.9); PLATELET COUNT (AUTO) 108 /CMM (150-450); RED BLOOD CELL COUNT(AUTO) 2.31 MIL/uL (4.5-6.0); WHITE BLOOD COUNT (AUTO) 7.6 K/uL (4.3-11.0)
[2020-11-01 08:44] LABS: ABG BASE EXCESS -8.7 mmol/L; ABG OXYGEN SATURATION 97.9 % (92.0-98.5); ABG PCO2 17.9 mmHg (35.0-45.0); ABG PO2 138.7 mmHg (75.0-100.0); AaDO2 39.8 mmHg; COHb 0.3 % (0.5-1.5); MetHb 0.8 % (0.0-1.5); O2Hb 96.8 % (94.0-97.0); SITE, ABG Left Radial; VENT MODE, BG Nasal Cannula
--- NOTE | 2020-11-01 09:00 | NUR ---
RN NOTE ABG STAT ORDER DONE PER ORDER OF DR. MORALES DUE TO PRESENCE OF SOB. ABG RESULTS RELAYED TO DR, ANTICIPATING TRANSFER TO ICU.
[2020-11-01] MEDS: CLOTRIMAZOLE 1% 15 GM TUBE TP SCH ×2 (09:31→17:35)
[2020-11-01] MEDS: PANTOPRAZOLE 40 MG TABLET.DR PO SCH (09:31)
--- NOTE | 2020-11-01 11:00 | NUR ---
CHIEF MEDICAL TECHNOLOGIST NOTE TRANSFERRED PT TO ICU. GAVE REPORT TO WILVER GRAJEDA. PT IS IN A DROWSY STATE. CURRENTLY ON 2L NC O2 WITH SOB PRESENT. FC PRESENT. BELONGINGS CHECKED AND TRANSFERRED OVER. VS STABLE. TRANSFERRED TO BED 258. SAFETY MEASURES IN PLACE. BED LOWERED. SIDE RAILS RAISED. CALL LIGHT WITHIN REACH.
--- NOTE | 2020-11-01 11:30 | NUR ---
RN NOTE PT TRANSFERRED FROM [facility] [[email or web address]] AT 1115, REPORT GIVEN BY WILVER MUNSON. PT ON NC 2LPM SPO2 100%, NO SIGN OF RESP DISTRESS OR SOB, BREATHING EVEN AND UNLABORED. PT HAS PAGAN CATH DRAINING CORAL URINE WITH RED TINGE. PT HAS ABDOMINAL DISTENTION AND RLQ ABD HERNIA PROTRUDING, RT WRIST #22 SALINE LOCKED, FLUSHED PATENT AND NO SIGNS OF INFILTRATION OR INFECTION, WILL RESUME NS @ 50ML/HR INFUSION ORDERED. MD AWARE OF AMMONIA LEVEL 265, LACTULOSE ORDERED, WILL ADMIN AFTER NGT PLACEMENT AND CONFIRMATION VIA CXR. PT HAS BILAT SOFT WRIST RESTRAINTS, CMS INTACT, BILAT ARM REDNESS AND RIGHT ARM BRUISING NOTED. WILL CONT TO MONITOR
[2020-11-01] MEDS ORDERED: LACTULOSE 10 G/15 ML UDC (PYXIS) PO PRN (12:00)
--- NOTE | 2020-11-01 12:15 | NUR ---
RN NOTE NG TUBE INSERTED AND CXR CONFIRMS PLACEMENT
[2020-11-01] MEDS ORDERED: NOREPINEPHRINE 8 MG in IV NS 0.9% 242 ML IV PRN (18:00)
--- NOTE | 2020-11-01 19:00 | NUR ---
DRAIN TILER CLOSING NOTE NO CHANGES TO PT STATUS DURING SHIFT. PT IN STABLE CONDITION, SEMICOMATOSE, BREATHING RA SPO2 100%. NO SIGNS OF RESP DISTRESS OR SOB. LAST AMMONIA LEVEL DRAWN AT 1800 OF 111. ALL SAFETY PRECAUTIONS IN PLACE, WILL ENDORSE MATEUS TO ONCOMING RN
--- NOTE | 2020-11-01 20:00 | NUR ---
Received patient lethargic nods head when name called.Moves all extremites but very weak. Respiration even and unlabored.RA O2 saturation 99%-100%.Hemodynamically stable,SR with Ist degree AVB.Patient with NGT clamped.Placement verified by auscultation and aspiration.FC to gravity.IVF infusing.Patient turned and repsoitioned.No acute distress noted.
[2020-11-01] MEDS: IV NS 0.9% 1,000 ML IV PRN (23:48)
[2020-11-02] VITALS (31 sets, daily range): BP systolic 94–127; BP diastolic 36–78
--- NOTE | 2020-11-02 | NUR ---
Patient remains lethargic.VSS.Turned and repositioned.No acute distress noted.
[2020-11-02] MEDS ORDERED: LACTULOSE 10 G/15 ML UDC (PYXIS) ONE (05:46)
[2020-11-02] MEDS: LACTULOSE 10 G/15 ML UDC (PYXIS) PO SCH ×4 (06:07→23:28)
--- NOTE | 2020-11-02 06:45 | NUR ---
Patient remains lethargic.VSS turned and repositioned.Had large loose bm.Kept clean and dry.No significant changes noted.Will endorse to day shift for further management.
--- NOTE | 2020-11-02 07:30 | NUR ---
Patient received in bed asleep. On room air with 02 saturation of 98%. No s/sx of respiratory distress. NGT clamped and placement noted. Head of the bed kept elevated. Bed is in lowest and locked position. Call light with in reach.
[2020-11-02] MEDS: PANTOPRAZOLE 40 MG TABLET.DR PO SCH (08:35)
[2020-11-02] MEDS: CLOTRIMAZOLE 1% 15 GM TUBE TP SCH ×2 (12:35→17:17)
[2020-11-02] MEDS: IV NS 0.9% 1,000 ML IV PRN (18:54)
--- NOTE | 2020-11-02 19:23 | NUR ---
ARTIFICIAL BREEDING TECHNICIAN CLOSING NOTES At apprx 1900 , patient noted with NGT in his hand and right soft wrist restraint loose. NGT reinserted and placement checked with Charge nurse.. On room air with 02 saturation of 100%. No s/sx of respiratory distress.Patient noted with 400 cc of urine output during shift. Kept clean and dry. Noted with 4 bm's during shift. Head of the bed kept elevated. Bed is in lowest and locked position. Fall precautions in place. Endorsed to next shift for MATEUS.
--- NOTE | 2020-11-02 20:00 | NUR ---
Received patient resting.Arouse easily.Denies pain.Respiration even and unlabored.On RA saturation 100%.Maintained HOB elevated.SR.VSS.NGT placement verified patent and clamped.NPO with ivf infusing well site intact.FC to gravity drainage.Turned and repositioned. Safety measures maintained.Call light at bedside.
[2020-11-03] VITALS (29 sets, daily range): BP systolic 75–129; BP diastolic 34–88
[2020-11-03] MEDS ORDERED: HYDROCODONE/APAP 5/325MG TABLET NG PRN
[2020-11-03 05:16] LABS: BASOPHILS % (AUTO) 0.3 % (0.0-2.0); EOSINOPHILS % (AUTO) 2.3 % (0.0-6.0); HEMATOCRIT 21 % (39-51); HEMOGLOBIN 7.2 g/dL (13.5-17.5); LYMPHOCYTES # (AUTO) 0.5 /CMM (0.8-4.8); LYMPHOCYTES % (AUTO) 5.8 % (20.0-44.0); MEAN CORPUSCULAR HGB CONC 34 g/dl (31.0-36.0); MEAN CORPUSCULAR VOLUME 96 fL (80-96); MONOCYTES % (AUTO) 12.1 % (2.0-12.0); NEUTROPHILS # (AUTO) 6.8 /CMM (1.8-8.9); NEUTROPHILS % (AUTO) 79.5 % (43.0-81.0); PLATELET COUNT (AUTO) 103 /CMM (150-450); RED BLOOD CELL COUNT(AUTO) 2.21 MIL/uL (4.5-6.0); WHITE BLOOD COUNT (AUTO) 8.5 K/uL (4.3-11.0)
[2020-11-03 05:47] LABS: ALBUMIN 2.8 g/dL (3.4-5.0); BILIRUBIN,TOTAL 4.8 mg/dL (0.2-1.0); CALCIUM, SERUM 8.8 mg/dL (8.5-10.1); POTASSIUM 3.5 mmol/L (3.5-5.1); TOTAL PROTEIN, SERUM 5.4 g/dL (6.4-8.2)
[2020-11-03] MEDS: LACTULOSE 10 G/15 ML UDC (PYXIS) PO SCH ×3 (06:29→18:10)
--- NOTE | 2020-11-03 07:15 | NUR ---
Patient more alert and follows simple commands at times.BM X2 .kept clean and dry.Turned and repositioned.PRN pain medication administered for scrotal pain with relief.VS remains stable. Will endorse to day shift for further management.
[2020-11-03] MEDS: CLOTRIMAZOLE 1% 15 GM TUBE TP SCH ×2 (08:26→17:03)
[2020-11-03] MEDS: PANTOPRAZOLE 40 MG TABLET.DR PO SCH (08:26)
[2020-11-03] MEDS ORDERED: ALBUMIN 25% 25 GM in PREMIX 1 EA IV PRN (13:00)
[2020-11-03] MEDS: IV NS 0.9% 1,000 ML IV PRN (15:05)
--- NOTE | 2020-11-03 20:00 | NUR ---
PROPERTY COORDINATOR NOTE PT IN BED AWAKE. A/O X 2, NO SOB NO DISTRESS OR DISCOMFORT NOTED. DENIES PAIN. ON TELE MONITOR HR 86. NGT R NARE INTACT AND PATENT, CLAMPED. ALSO PLACEMENT CHECKED. F/C INTACT PATENT DRAINING CORAL COLOR URINE. PT REMAIN NPO EXCEPT MEDS. IVF NS @ 50 ML/HR INFUSING AT LUCINDA PICC LINE, RT WRIST #22 SL INTACT AND PATENT. PENDING SWALLOW EVALUATION IN AM. KEPT HOB ELEVATED TO 40 DEGREES. SIDE RAILS UP X 3 AND CALL LIGHT WITHIN REACH. VSS. CONTINUE TO MONITOR HIM.
--- NOTE | 2020-11-03 23:45 | NUR ---
POULTICE MACHINE OPERATOR NOTE NOTED PT PULLED OUT NGT BY SHAKING HIS HEAD. NO DISTRESS NOTED. PT DENIES PAIN. ORAL CARE GIVEN. REINSERTED FR 16 SALEM SUMP NGT IN RT NARE. PT TOLERATED PROCEDURE WELL. CHECKED THE POSITION WITH CHARGE NURSE ALYSSIA. NOTED PT WITH GASTRIC FLUIDS WHEN CHECKING THE POSITION OF NGT. SECURED THE TUBE ON NOSE BRIDGE WELL. REMINDED PT NOT TO PULL OR TRY TO REMOVE THE NGT. KEPT HOB ELEVATED.
[2020-11-04] VITALS (15 sets, daily range): BP systolic 100–159; BP diastolic 53–98
[2020-11-04] MEDS: LACTULOSE 10 G/15 ML UDC (PYXIS) PO SCH ×5 (00:55→23:56)
[2020-11-04 05:09] LABS: BASOPHILS % (AUTO) 0.3 % (0.0-2.0); HEMATOCRIT 21 % (39-51); HEMOGLOBIN 7.1 g/dL (13.5-17.5); LYMPHOCYTES # (AUTO) 0.4 /CMM (0.8-4.8); LYMPHOCYTES % (AUTO) 5.1 % (20.0-44.0); MEAN CORPUSCULAR HGB CONC 34 g/dl (31.0-36.0); MEAN CORPUSCULAR VOLUME 96 fL (80-96); MONOCYTES # (AUTO) 0.9 /CMM (0.1-1.30); MONOCYTES % (AUTO) 12.6 % (2.0-12.0); NEUTROPHILS # (AUTO) 5.9 /CMM (1.8-8.9); PLATELET COUNT (AUTO) 93 /CMM (150-450); RED BLOOD CELL COUNT(AUTO) 2.17 MIL/uL (4.5-6.0); WHITE BLOOD COUNT (AUTO) 7.4 K/uL (4.3-11.0)
[2020-11-04 05:31] LABS: CALCIUM, SERUM 8.6 mg/dL (8.5-10.1); CREATININE 3.8 mg/dL (0.6-1.3); POTASSIUM 3.4 mmol/L (3.5-5.1)
--- NOTE | 2020-11-04 06:29 | NUR ---
PHYS ASSISTANT NOTE PT IN BED AWAKE. NO DISTRESS OR DISCOMFORT NOTED. DENIES PAIN. ON TELE SR HR 90. NGT RT NARE INTACT AND PATENT. REMAIN NPO EXCEPT MEDS. F/C INTACT AND PATENT DRAINING CORAL COLOR URINE. SIDE RAILS UP X 2 AND CALL LIGHT WITHIN REACH. BILATERAT SOFT WRIST RESTRAINTS ON. WILL ENDORSE TO DAY SHIFT NURSE FOR CONTINUE TO CARE.
--- NOTE | 2020-11-04 08:00 | NUR ---
PT RECEIVED IN BED ON ROOM AIR, ALERT AND ORIENTED X 1-2, CONFUSED AT TIMES BUT FOLLOWS COMMANDS. PT NPO TO HAVE SWALLOW EVAL LATER. PT TO POSSIBLY BE DOWNGRADED. PT IV SITES ARE INTACT AND FLUSHED WELL NO SIGNS OF INFECTION OR INFILTRATION. ALL SAFETY MEASURES IN PLACE, WILL CONTINUE TO MONITOR
[2020-11-04] MEDS: PANTOPRAZOLE 40 MG TABLET.DR PO SCH (08:34)
[2020-11-04] MEDS: POTASSIUM CL. PREMIX PERIPHER. 50 ML IV SCH ×2 (08:48→12:23)
[2020-11-04] MEDS: CLOTRIMAZOLE 1% 15 GM TUBE TP SCH ×2 (08:50→16:43)
[2020-11-04] MEDS: IV NS 0.9% 1,000 ML IV PRN (10:15)
--- NOTE | 2020-11-04 11:00 | NUR ---
PT TRANSFERRED AND REPORT GIVEN TO DANNY IN 3W, ROOM 313
--- NOTE | 2020-11-04 14:00 | NUR ---
tele grease rack worker: notes pt manage to pull out his ng tube. whitney wrist restraints released and repositioned. reality orientation provided prn. will continue to monitor.
--- NOTE | 2020-11-04 17:30 | NUR ---
tele national opelint analyst: notes pt tolerated dinner. no s/s of aspiration. needs attended. will continue to monitor.
--- NOTE | 2020-11-04 19:00 | NUR ---
tele blade changer: notes bedside report given to ricardo navas) for continuity of care.
[2020-11-05] VITALS (7 sets, daily range): BP systolic 103–133; BP diastolic 43–70
--- NOTE | 2020-11-05 05:08 | NUR ---
closing notes; confused max assist to be turned and repositioned srotum swollen 3+ ELEVATED ON A ROLLED TOWEL GENERALIZED BODY EDEMA PAGAN TO DRAIANGE ASP PRECAUTIONS NECTOR THICKENED LIQUID TAKEN W/O PROBLEMS\ NO N/V OR C/O OF ABD DISCOMFORT WHEN WRIST RESTRAINTS OFF HE REMOVES HIS CARDIOAC LEADS AND GOWN AND OVER SHEET RENEWED THE RESTRAINTS FOR SAFETY
[2020-11-05] MEDS: LACTULOSE 10 G/15 ML UDC (PYXIS) PO SCH ×4 (05:59→23:38)
[2020-11-05] MEDS: IV NS 0.9% 1,000 ML IV PRN (06:15)
[2020-11-05 06:49] LABS: BASOPHILS % (AUTO) 0.5 % (0.0-2.0); EOSINOPHILS % (AUTO) 2.1 % (0.0-6.0); HEMATOCRIT 22 % (39-51); HEMOGLOBIN 7.1 g/dL (13.5-17.5); LYMPHOCYTES # (AUTO) 0.4 /CMM (0.8-4.8); LYMPHOCYTES % (AUTO) 4.6 % (20.0-44.0); MEAN CORPUSCULAR HGB CONC 33 g/dl (31.0-36.0); MEAN CORPUSCULAR VOLUME 99 fL (80-96); MONOCYTES # (AUTO) 0.9 /CMM (0.1-1.30); MONOCYTES % (AUTO) 10.6 % (2.0-12.0); NEUTROPHILS # (AUTO) 7.2 /CMM (1.8-8.9); NEUTROPHILS % (AUTO) 82.2 % (43.0-81.0); PLATELET COUNT (AUTO) 86 /CMM (150-450); RED BLOOD CELL COUNT(AUTO) 2.19 MIL/uL (4.5-6.0); WHITE BLOOD COUNT (AUTO) 8.8 K/uL (4.3-11.0)
[2020-11-05 07:21] LABS: CALCIUM, SERUM 8.6 mg/dL (8.5-10.1); CREATININE 3.9 mg/dL (0.6-1.3); POTASSIUM 3.4 mmol/L (3.5-5.1)
[2020-11-05] MEDS: PANTOPRAZOLE 40 MG TABLET.DR PO SCH (08:22)
[2020-11-05] MEDS: CLOTRIMAZOLE 1% 15 GM TUBE TP SCH ×2 (08:31→17:47)
--- NOTE | 2020-11-05 15:22 | NUR ---
MS RN NOTE PT HAD ULTRASOUND GUIDED PARACENTESIS - 5L TAKEN. SPOKE WITH DR. CARMEN, PER , WILL NOT SEND TO LAB FOR CYTOLOGY.
--- NOTE | 2020-11-05 18:30 | NUR ---
MS RN CLOSING NOTE PT IS AWAKE, LYING IN BED. A/O X2. ABLE TO VERBALIZE NEEDS WELL. BILATERAL SOFT WRIST RESTRAINTS. TELE D/C'D. PT STILL HAS SWELLING THROUGHOUT BODY AND SCROTUM. 5L FLUID REMOVED DURING PARACENTESIS - NOT SENT TO LAB. PAGAN TO DRAINAGE. MINIMAL DISCOMFORT. PT STATED HE FELT BETTER AFTER BEING CLEANED UP AND ALSO AFTER PARACENTESIS. REQUESTS ICE CHIPS OFTEN. HOB ELEVATED. WILL ENDORSE TO MANAGED SERVICES SALES CONSULTANT.
--- NOTE | 2020-11-05 19:00 | NUR ---
RECEIVED IN BED AWAKE ORIENTATED X1 ASPIRATION PRECAUTIONS FED ICE CHIPS AND NOTED SWALLOWED W/O PROBLEMS SCD'S ON ORDERED WRIST RESTRAINTS REMOVED WHILE I WAS IN THE ROOM, HE REACHED UP AND TOOK OFF HIS 02 N/C HANDS WARM CAPILLLARY REFILL WITHIN 3 SEC RESTRAINTS BACK ON NONCOMPLIANTE
[2020-11-06] VITALS (11 sets, daily range): BP systolic 101–130; BP diastolic 38–72
[2020-11-06] MEDS: IV NS 0.9% 1,000 ML IV PRN ×2 (00:59→19:44)
--- NOTE | 2020-11-06 04:40 | NUR ---
ENDING NOTES: ALERT TO NURSE IN THE ROOM NOTED TONGUE IS SORE S/P "BITING HIS TONGUE 2 -3 DAYS AGO ENJOY ICE CHIPS ASPRECAUTIONS. ABD ROUND AND TAUNT bs HYPOACTIVE. WRIST RESTRAINTS REMOVED WHEN NURSE IN THE ROOM AND OBSEREVED PT TAKING OFF HIS N/C 02 AND PULL HIS GOWN RESTRAINTS PLACED BACK ON. TO BE REPOSITIONED AND CLEANED TAKE 2 PEOPLE D/T HIS SIZE. PAGAN CATH DRAINAGE CLOUDY YELLOW
[2020-11-06] MEDS: LACTULOSE 10 G/15 ML UDC (PYXIS) PO SCH (05:29)
--- NOTE | 2020-11-06 07:44 | NUR ---
MS/RN OPENING NOTES RECEIVED PATIENT ON BED, ALERT AND ORIENTED X2. PATIENT IS ON 1L OXYGEN VIA NASAL CANNULA. PATIENT IN NO APPARENT RESPIRATORY DISTRESS NOTED. NO SIGN AND SYMPTOM OF PAIN NOTED AT THIS TIME. WILL CONTINUE TO MONITOR.
[2020-11-06] MEDS: PANTOPRAZOLE 40 MG TABLET.DR PO SCH (08:11)
[2020-11-06] MEDS: CLOTRIMAZOLE 1% 15 GM TUBE TP SCH ×2 (08:44→18:47)
[2020-11-06] MEDS ORDERED: PHYTONADIONE 5 MG TABLET PO ONE (11:00)
[2020-11-06] MEDS ORDERED: PHYTONADIONE INJ 10 MG/1 ML AMPUL SQ ONE ×2 (11:30)
--- NOTE | 2020-11-06 11:45 | NUR ---
MS/RN NOTES DR. ROWLEY ORDER LACTULOSE 20G/45ML EVERY 6 HOURS PRN. PATIENT NEEDS TO HAVE 2-3 BM A DAY. NOTED AND CARRIED OUT.
[2020-11-06] MEDS ORDERED: LACTULOSE 10 G/15 ML UDC (PYXIS) PO PRN (12:00)
[2020-11-06 12:06] LABS: ABG BASE EXCESS -12.1 mmol/L; ABG OXYGEN SATURATION 98.6 % (92.0-98.5); ABG PCO2 19.1 mmHg (35.0-45.0); ABG PH 7.395 (7.350-7.450); ABG PO2 151.3 mmHg (75.0-100.0); AaDO2 25.8 mmHg; COHb 0.5 % (0.5-1.5); MetHb 0.4 % (0.0-1.5); O2Hb 97.7 % (94.0-97.0); SITE, ABG Left Radial; VENT MODE, BG NASAL CANNULA
--- NOTE | 2020-11-06 14:01 | NUR ---
MS/RN NOTES PATIENT ALERT AND ORIENTED X1. PATIENT IN ROOM AIR SATURATION 100%. PATIENT IN NO APPARENT RESPIRATORY DISTRESS NOTED. NO SIGN AND SYMPTOM OF PAIN NOTED. TRANSFER PATIENT IN ICU. REPORT WAS GIVEN TO NORMA PETTIT FOR MATEUS.
--- NOTE | 2020-11-06 15:04 | NUR ---
RN NOTES RECEIVED PT ASLEEP,BUT RESPONDS TO VOICE, SATURATING WELL ON RA, OTHE VITAL SIGNS STABLE, W/ LEFT ARM PICC, N/S AT 50CC, PAGAN IN PLACE WITH MOISTURE DAMAGE TO SKIN AND TEAR IN SCROTUM, ON BEDREST, WILL ENDORSE TO ICU OVERFLOW FOR CONTINUITY OF CARE
[2020-11-06 15:22] LABS: ABG BASE EXCESS -11.7 mmol/L; ABG OXYGEN SATURATION 98.3 % (92.0-98.5); ABG PCO2 18.2 mmHg (35.0-45.0); ABG PH 7.416 (7.350-7.450); ABG PO2 126.2 mmHg (75.0-100.0); AaDO2 1.7 mmHg; COHb 0.8 % (0.5-1.5); MetHb 0.4 % (0.0-1.5); O2Hb 97.1 % (94.0-97.0); SITE, ABG Left Radial; VENT MODE, BG room air
--- NOTE | 2020-11-06 19:16 | NUR ---
RN NOTE RECEIVED PT IN BED IN SEMI FOWLERS POSITION ALERT BUT UNABLE TO FOLLOW COMMANDS. PT ABLE TO OPEN EYES SIMULTANEOUSLY. VITAL SIGNS STABLE VIA BEDSIDE MONITOR. SR ON THE WATER POLLUTION SPECIALIST. ON ROOM AIR, RESPIRATIONS EVEN AND UNLABORED. PAGAN CATHETER PATENT AND IN PLACE DRAINING URINE VIA GRAVITY. RESTRAINTS IN PLACE ORDERED FOR SAFETY, WILL DO VISUAL AND CIRCULATORY CHECKS Q15M. LEFT UPPER ARM PATENT AND WITHOUT COMPLICATIONS NOTED. WITH NS @ 50CC/HOUR RUNNING ORDERED. SAFETY PRECAUTIONS IN PLACE PER PROTOCOL, BED ALARM ON AND AUDIBLE, BED LOCKED AND IN LOW POSITION, SIDE RAILS UP X 2, WILL MONITOR PATIENT AND CARRY OUT ACTIVE MD ORDERS.
--- NOTE | 2020-11-06 22:00 | NUR ---
RN NOTE ATTEMPTED TO ASSESS SWALLOWING BUT PT IS TOO LETHARGIC.
[2020-11-07] VITALS (27 sets, daily range): BP systolic 96–127; BP diastolic 44–91
--- NOTE | 2020-11-07 | NUR ---
RN NOTE COMPLETE BED BATH/AM CARE COMPLETE. PT TOLERATED WELL. VITAL SIGNS STABLE VIA BEDSIDE MONITOR. WILL CONTINUE TO MONITOR.
--- NOTE | 2020-11-07 06:28 | NUR ---
RN NOTE ATTEMPTED TO REASSESS PT'S ABILITY TO SWALLOW BUT PT REMAINS TOO LETHARGIC. HOWEVER, PT IS ABLE TO OPEN EYES UPON COMMAND.
--- NOTE | 2020-11-07 06:43 | NUR ---
RN NOTE NO ACUTE CHANGES OBSERVED OVERNIGHT. PT IN BED IN SEMI FOWLERS POSITION ALERT. PT ABLE TO OPEN EYES SIMULTANEOUSLY BUT UNABLE TO FOLLOW ALL OTHER COMMANDS. PT LETHARGIC. VITAL SIGNS STABLE VIA BEDSIDE MONITOR. SR ON THE ANIMAL TRAINER SUPERVISOR. ON ROOM AIR, PAGAN CATHETER PATENT AND IN PLACE DRAINING URINE VIA GRAVITY. RESTRAINTS IN PLACE ORDERED FOR SAFETY, VISUAL AND CIRCULATORY/SKIN CHECKS Q15M. LEFT UPPER ARM PICC LINE PATENT AND WITHOUT COMPLICATIONS NOTED. WITH NS @ 50CC/HOUR RUNNING ORDERED. SAFETY PRECAUTIONS IN PLACE PER PROTOCOL, BED ALARM ON AND AUDIBLE, BED LOCKED AND IN LOW POSITION, SIDE RAILS UP X 2, WILL ENDORSE TO MORNING RN FOR MATEUS.
[2020-11-07] MEDS: PANTOPRAZOLE 40 MG TABLET.DR PO SCH (07:30)
--- NOTE | 2020-11-07 08:04 | NUR ---
PT IS VERY LETHARGIC, PENDING SWALLOW ALEJANDRO, INCREASE RISK OF ASPIRATION Addendum: 11/07/20 at 0805 by HALLE GUTIERREZ RN NOT ADMINISTERED PO PROTONIX
--- NOTE | 2020-11-07 08:06 | NUR ---
Received pt lying inbed HOB 45 degree, room air, lethargy/drowsy, unable to follow command, abdomen distended, with mid abdominal hernia, scrotum very distended, moisture associated skin breakdown to the scrotum. see full nursing assessment for detail findings. vital signs stable 105/59, 16, 78, 100% RA. All labs and orders reviewed.
[2020-11-07] MEDS: CLOTRIMAZOLE 1% 15 GM TUBE TP SCH ×2 (08:13→17:25)
[2020-11-07 09:47] LABS: ALBUMIN 2.4 g/dL (3.4-5.0); BILIRUBIN,TOTAL 4.7 mg/dL (0.2-1.0); CALCIUM, SERUM 8.5 mg/dL (8.5-10.1); CREATININE 4.6 mg/dL (0.6-1.3); POTASSIUM 3.7 mmol/L (3.5-5.1); TOTAL PROTEIN, SERUM 5.3 g/dL (6.4-8.2)
[2020-11-07 10:03] LABS: BASOPHILS # (AUTO) 0.1 /CMM (0.0-0.2); BASOPHILS % (AUTO) 1.1 % (0.0-2.0); EOSINOPHILS % (AUTO) 1.4 % (0.0-6.0); HEMATOCRIT 21 % (39-51); LYMPHOCYTES # (AUTO) 0.4 /CMM (0.8-4.8); LYMPHOCYTES % (AUTO) 5.2 % (20.0-44.0); MEAN CORPUSCULAR HGB CONC 34 g/dl (31.0-36.0); MEAN CORPUSCULAR VOLUME 99 fL (80-96); MONOCYTES # (AUTO) 0.6 /CMM (0.1-1.30); MONOCYTES % (AUTO) 7.7 % (2.0-12.0); NEUTROPHILS # (AUTO) 6.1 /CMM (1.8-8.9); NEUTROPHILS % (AUTO) 84.6 % (43.0-81.0); PLATELET COUNT (AUTO) 72 /CMM (150-450); WHITE BLOOD COUNT (AUTO) 7.2 K/uL (4.3-11.0)
--- NOTE | 2020-11-07 11:41 | NUR ---
Clinical Social Work Note Patient has a history of alcoholism and liver cirrhosis. He cannot be interviewed at this point as he is medically unstable and altered. Social work will attempt to establish if there is family through other means.
[2020-11-07 13:20] LABS: BAND % (MANUAL) 1 % (0.0-5.0); EOSINOPHILS % (MANUAL) 4 % (0-4); LYMPHOCYTES % (MANUAL) 4 % (16-48); MONOCYTES % (MANUAL) 3 % (0-11.0); NEUTROPHILS % (MANUAL) 88 (42-76)
--- NOTE | 2020-11-07 14:21 | NUR ---
pt restraint discontinued as per RN judgement as pt no longer meet criteria to be restraints. RN will continue to monitor patient and use other non-restrictive measures for patient safety.
[2020-11-07] MEDS: IV D5/ 0.9% NACL 1,000 ML IV PRN (15:21)
--- NOTE | 2020-11-07 19:13 | NUR ---
RN NOTE RECEIVED PT IN BED IN SEMI FOWLERS POSITION LETHARGIC. PT UNABLE TO OPEN EYES OR FOLLOW COMMANDS. VITAL SIGNS STABLE VIA BEDSIDE MONITOR. SR ON THE REAL ESTATE COORDINATOR. ON ROOM AIR, O2 SATURATION WNL. PAGAN CATHETER PATENT AND IN PLACE DRAINING URINE VIA GRAVITY. LEFT UPPER ARM PICC LINE PATENT AND WITHOUT COMPLICATIONS NOTED. WITH D5NS @ 50CC/HOUR RUNNING ORDERED. NPO STATUS MAINTAINED. SAFETY PRECAUTIONS IN PLACE PER PROTOCOL, BED ALARM ON AND AUDIBLE, BED LOCKED AND IN LOW POSITION, SIDE RAILS UP X 2, WILL MONITOR PATIENT AND CARRY OUT ACTIVE MD ORDERS.
[2020-11-08] VITALS (77 sets, daily range): BP systolic 68–134; BP diastolic 33–82
--- NOTE | 2020-11-08 | NUR ---
RN NOTE COMPLETE BED BATH/AM CARE COMPLETE. PT TOLERATED WELL. VITAL SIGNS STABLE VIA BEDSIDE MONITOR. NO BM NOTED, WOUND CAR ERENDERED ORDERED, WILL CONTINUE TO MONITOR.
--- NOTE | 2020-11-08 07:14 | NUR ---
RN NOTE PT IN BED IN SEMI FOWLERS POSITION LETHARGIC. PT UNABLE TO OPEN EYES OR FOLLOW COMMANDS. VITAL SIGNS STABLE VIA BEDSIDE MONITOR. SR ON THE TREKKING GUIDE. O2 SATURATION BETWEEN 93-95% WHILE ON ROOM AIR. PT ALSO HAS DEEP RESPIRATIONS. ADMINISTERED 4L OF O2 VIA NC. PAGAN CATHETER PATENT AND IN PLACE DRAINING MINIMAL URINE VIA GRAVITY. LEFT UPPER ARM PICC LINE PATENT AND WITHOUT COMPLICATIONS NOTED. WITH D5NS @ 50CC/HOUR RUNNING ORDERED. NPO STATUS MAINTAINED. ASPIRATIONS PRECAUTIONS IN PLACE. SAFETY PRECAUTIONS IN PLACE PER PROTOCOL, BED ALARM ON AND AUDIBLE, BED LOCKED AND IN LOW POSITION, SIDE RAILS UP X 2, WILL ENDORSE TO MORNING RN FOR MATEUS.
--- NOTE | 2020-11-08 07:28 | NUR ---
Received pt in bed, very lethargic, non-verbal, spontaneously opens eyes, labored/deep breathing, on 4 LNC, saturation 97%, unable to follow instructions, and localized pain or discomfort. pt condition remain very critical from previous assessment due to changes in breathing pattern and oxygen requirements. Bed in semi-moreland position and repositioned to the left, delarosa to bedside gravity drainage, with minimal cloudy urine output 10 ml with sediments, left upper arm PICC line in patent with good blood return and infusing with D5W/NS @ 50 ml/hr. integumentary measures in place with pillows, cushion to the sacral and whitney heels. scrotum elevated, with petroleum gauze dressing around the excoriated areas. Pt remain full code, pending social work consultation with family. All safety precaution (CLABSI, CAUTI) fall, seizure and cardiac in place. Vital signs stable at this time, bp 125/64, hr 97 SR with first degree AVB, 97% 4LNC, RR 18. Will continue to monitor closely and carried out coordinating with all medical orders.
[2020-11-08] MEDS: PANTOPRAZOLE 40 MG VIAL IV SCH (08:46)
--- NOTE | 2020-11-08 08:55 | NUR ---
Social Service phone call: SW spoke with the brother via phone at 0845 am (Clyde Ward, ) to identify the pt's next of kin. The brother (Clyde Ward, ) has verbally identified himself to take on the medical responsibilities (medical surrogate) and point of contact for the pt. The brother (Clyde Ward, ) also reports having the father as the second point of contact (Zeb Ward, ). Plan: SW identified the next of kin for the pt. Seed [employer] Laboratory Assistant will be available upon request.
[2020-11-08] MEDS: RIFAXIMIN 550 MG TABLET PO SCH ×2 (09:00→16:41)
[2020-11-08] MEDS ORDERED: RIFAXIMIN 200 MG TABLET PO SCH (09:00)
[2020-11-08 09:04] LABS: BASOPHILS % (AUTO) 0.3 % (0.0-2.0); EOSINOPHILS % (AUTO) 1.1 % (0.0-6.0); HEMATOCRIT 22 % (39-51); HEMOGLOBIN 7.1 g/dL (13.5-17.5); LYMPHOCYTES # (AUTO) 0.4 /CMM (0.8-4.8); LYMPHOCYTES % (AUTO) 4.6 % (20.0-44.0); MEAN CORPUSCULAR HGB CONC 33 g/dl (31.0-36.0); MEAN CORPUSCULAR VOLUME 102 fL (80-96); MONOCYTES # (AUTO) 0.9 /CMM (0.1-1.30); MONOCYTES % (AUTO) 9.5 % (2.0-12.0); NEUTROPHILS # (AUTO) 8.2 /CMM (1.8-8.9); NEUTROPHILS % (AUTO) 84.5 % (43.0-81.0); PLATELET COUNT (AUTO) 82 /CMM (150-450); RED BLOOD CELL COUNT(AUTO) 2.13 MIL/uL (4.5-6.0); WHITE BLOOD COUNT (AUTO) 9.8 K/uL (4.3-11.0)
--- NOTE | 2020-11-08 09:05 | NUR ---
pt had a rapid sequence intubation by ED MD Dr. Cooper Merino, pt noted with large clot partially occluding the airway during intubation. Pt had a moderate bleeding from the oropharyngeal during after intubation and was subsequently suctioned, stat CBC order due to low hgb and worsening blood loss as evidenced by 200 ml of bright red blood suctioned from the ETT. Intubated at 09:05 am PST, ETT 7.5, @ 25 lip line. Vent A/C mode, TD 500, Peep 5, Fio2 100%, RR 26. OGT not placed at this time due to concern of esophageal bleed, pending MD order regarding OGT/NGT placement. Will continue to monitor pt. No sedatives or paralytic was used during intubation.
[2020-11-08] MEDS: CLOTRIMAZOLE 1% 15 GM TUBE TP SCH ×2 (09:21→16:41)
[2020-11-08 09:24] LABS: CALCIUM, SERUM 8.6 mg/dL (8.5-10.1); POTASSIUM 4.1 mmol/L (3.5-5.1)
[2020-11-08] MEDS ORDERED: PROPOFOL 100 ML IV PRN (09:30)
--- NOTE | 2020-11-08 09:38 | NUR ---
male pt orally intubated by er MD Merino with 7.5 et-tube secured at 25cm. b/s equal. alarms set and audible. Large amounts of blood from et tube. settings as ordered. Addendum: 11/08/20 at 0943 by TATIANNA KAUR RT Amended: Links added.
[2020-11-08] MEDS: IV D5/ 0.9% NACL 1,000 ML IV PRN (10:24)
[2020-11-08] MEDS: PRECEDEX 400 MCG/100 ML BOTTLE 100 ML IV PRN (11:37)
[2020-11-08 12:07] LABS: ABG BASE EXCESS -10.2 mmol/L; ABG OXYGEN SATURATION 99.5 % (92.0-98.5); ABG PH 7.475 (7.350-7.450); ABG PO2 297.4 mmHg (75.0-100.0); COHb 1.1 % (0.5-1.5); MetHb 0.5 % (0.0-1.5); O2Hb 97.9 % (94.0-97.0); SITE, ABG Right Radial; VENT MODE, BG ac26 500 50% +5
[2020-11-08] MEDS ORDERED: NOREPINEPHRINE 8 MG in IV NS 0.9% 242 ML IV PRN (13:00)
[2020-11-08] MEDS: OCTREOTIDE 1,250 MCG in IV NS 0.9% 247.5 ML IV PRN (15:00)
[2020-11-08] MEDS: NOREPINEPHRINE 8 MG in IV NS 0.9% 242 ML IV PRN (15:01)
--- NOTE | 2020-11-08 15:43 | NUR ---
OGT placed as per DR. Zhao order, placement confirmed by aspiration and auscultation.
[2020-11-08] MEDS ORDERED: IV NS 0.9% 500 ML IV ONE (16:35)
--- NOTE | 2020-11-08 19:10 | NUR ---
pt remain critiaclly stable, intubated and mechanically vented A/C 40% Peep 0, 450 TD RR 26. ETT 7.5, lip line 25 cm, OGT 60 cm @ lip. S/p EGD, no verices noted, now have OGT pending order for tube feeding. Levophed infusing at 0.05 mcg/kg/min, sandostatin infusing, as per Dr. Zhao order, 1 unit of PRBC infusing, with no signs of transfusion reaction. PICC line in place patent with good blood return, complete bed bath, delarosa care, oral care and integumetry measures in place through the entire shift, repositioned every 2 hrs,. safety and cardiac precaution in place and will endorse to store merchandiser for continuity of care.
--- NOTE | 2020-11-08 20:00 | NUR ---
Rn Note Pt. remains on vent no change. very agitated, combative, start precedex.
--- NOTE | 2020-11-08 20:00 | NUR ---
RN Note Pt. remains on vent settings as ordered. Restart heparin @ 900. PTT order @ 0300 11/09/20. Addendum: 11/09/20 at 0651 by JOSÉ WHATLEY RN Disregard, Chart in error
[2020-11-08] MEDS: LACTULOSE 10 G/15 ML UDC (PYXIS) PO PRN (21:28)
[2020-11-09] VITALS (91 sets, daily range): BP systolic 66–163; BP diastolic 33–110
[2020-11-09] MEDS: LACTULOSE 10 G/15 ML UDC (PYXIS) PO PRN ×2 (02:47→15:01)
[2020-11-09] MEDS: IV D5/ 0.9% NACL 1,000 ML IV PRN ×2 (04:43→17:36)
[2020-11-09] MEDS: NOREPINEPHRINE 8 MG in IV NS 0.9% 242 ML IV PRN (04:44)
[2020-11-09 05:29] LABS: ALBUMIN 2.2 g/dL (3.4-5.0); BILIRUBIN,TOTAL 7.6 mg/dL (0.2-1.0); CALCIUM, SERUM 8.3 mg/dL (8.5-10.1); CREATININE 5.3 mg/dL (0.6-1.3); PHOSPHORUS 5.4 mg/dL (2.5-4.9); POTASSIUM 4.7 mmol/L (3.5-5.1); TOTAL PROTEIN, SERUM 5.5 g/dL (6.4-8.2)
[2020-11-09 05:32] LABS: BASOPHILS % (AUTO) 0.4 % (0.0-2.0); EOSINOPHILS % (AUTO) 0.9 % (0.0-6.0); HEMATOCRIT 25 % (39-51); LYMPHOCYTES # (AUTO) 0.5 /CMM (0.8-4.8); LYMPHOCYTES % (AUTO) 6.9 % (20.0-44.0); MEAN CORPUSCULAR HGB CONC 32 g/dl (31.0-36.0); MEAN CORPUSCULAR VOLUME 103 fL (80-96); MONOCYTES # (AUTO) 0.5 /CMM (0.1-1.30); MONOCYTES % (AUTO) 6.4 % (2.0-12.0); NEUTROPHILS # (AUTO) 6.4 /CMM (1.8-8.9); NEUTROPHILS % (AUTO) 85.4 % (43.0-81.0); PLATELET COUNT (AUTO) 56 /CMM (150-450); RED BLOOD CELL COUNT(AUTO) 2.42 MIL/uL (4.5-6.0); WHITE BLOOD COUNT (AUTO) 7.5 K/uL (4.3-11.0)
--- NOTE | 2020-11-09 06:43 | NUR ---
RN Note. Pt. remain on bicarb drip @ 75. New meds, propofol current rate 50, Quad levo @ 0.05, Heparin now at 1000, next PTT @ 1200 hrs. Addendum: 11/09/20 at 0650 by JOSÉ WHATLEY RN Disregard. charted in error.
--- NOTE | 2020-11-09 06:58 | NUR ---
RN NOTE Remains on Levo @ 0.05, D5 NS @ 50, sandostatin @ 50. PT. bradycardic all night.
--- NOTE | 2020-11-09 07:15 | NUR ---
TONAL REGULATOR NOTES RECEIVED PATIENT LETHARGIC , MILDLY AGITATED , NO SEDATION AT THIS TIME , SPO2 OF 98% VIA MECHANICAL VENT SETTINGS ORDERED , ETT 7.5/[address] , SB WITH 1ST DEGREE AV BLOCK 45 , OGT PATENT AND INTACT WITH YELLOW THICK OUTPUT 100ML IN AMOUNT , FC DRAINING VIA GRAVITY , LUCINDA PICC LINE WITH LEVOPHED @ 0.05MCG/KG/MIN , D5NS @ 50ML/HR AND SANDOSTATIN @ 50MCG/HR INFUSING WELL , ALL NEEDS ATTENDED ,WILL CONTINUE TO MONITOR .
[2020-11-09] MEDS: PRECEDEX 400 MCG/100 ML BOTTLE 100 ML IV PRN (07:33)
[2020-11-09] MEDS: PANTOPRAZOLE 40 MG VIAL IV SCH (07:49)
[2020-11-09 08:10] LABS: ABG BASE EXCESS -12.2 mmol/L; ABG OXYGEN SATURATION 99.2 % (92.0-98.5); ABG PCO2 18.7 mmHg (35.0-45.0); ABG PH 7.393 (7.350-7.450); ABG PO2 226.9 mmHg (75.0-100.0); AaDO2 36.8 mmHg; COHb 0.5 % (0.5-1.5); MetHb 0.3 % (0.0-1.5); O2Hb 98.4 % (94.0-97.0); PEEP,BG 0 cm H2O; SITE, ABG Left Radial; VT, ABG 450 mL
[2020-11-09] MEDS: CLOTRIMAZOLE 1% 15 GM TUBE TP SCH ×2 (08:23→16:54)
[2020-11-09] MEDS: RIFAXIMIN 550 MG TABLET PO SCH ×2 (08:23→17:19)
--- NOTE | 2020-11-09 08:51 | NUR ---
FLEET SERVICE CLERK NOTES JOSE CARLOS FRANKLIN AT BEDSIDE DISCUSSED LABS , COAGS ARE STILL PENDING , INSERTED HALLIE CATH @ RIGHT GROIN , PT STABLE S/P PROCEDURE , NO BLEEDING NOTED , PER NOEMI HALLIE CATH OK TO USE .
[2020-11-09 09:17] LABS: LYMPHOCYTES % (MANUAL) 7 % (16-48); MONOCYTES % (MANUAL) 6 % (0-11.0); NEUTROPHILS % (MANUAL) 87 (42-76)
[2020-11-09] MEDS: OCTREOTIDE 1,250 MCG in IV NS 0.9% 247.5 ML IV PRN (09:20)
--- NOTE | 2020-11-09 09:25 | NUR ---
CODING AND REIMBURSEMENT SPECIALIST NOTES SEEN AND EVALUATED BY DR CONNER , DISCUSSED LABS , CURRENT VS , ON LEVOPHED @ 0.02MCG/KG/MIN , SEDATED WITH PRECEDEX @ 0.9MCG/KG/MIN , AFEBRILE , DISCUSSED EGD RESULTS , PT NOTED TO HAVE BLOOD SECRETIONS WHILE SUCTIONING ORALLY , ON SANDOSTATIN DRIP , SHOWED RIGHT MID ABDOMEN NOT CROSSING MIDLINE RASH , PER MD NO NEED FOR ANTIVIRAL IT IS CRUSTED AND DRY ALREADY , HR OF 1ST DEGREE AV BLOCK 40'S , PER MD CHANGED PRECEDEX TO DIPRIVAN , S/P HALLIE CATH PLACEMENT ,
--- NOTE | 2020-11-09 09:30 | NUR ---
VICE PRINCIPAL NOTES SEEN AND EVALUATED BY DR KIM , DISCUSSED LABS , CHEST XRAY , CURRENT VENT SETTINGS AND ABG RESULTS , PT ON PRECEDEX @ 0.9MCG/KG/MIN , ON LEVOPHED @ 0.02MCG/KG /MIN , HR IS SB WITH 1ST DEGREE AV BLOCK 40'S , PER DR CONNER CHANGE PRECEDEX TO DIPRIVAN DUE TO HR PER DR KIM OK TO CHANGE SEDATION TO DIPRIVAN .
[2020-11-09] MEDS: PROPOFOL 100 ML IV PRN ×2 (10:48→21:08)
--- NOTE | 2020-11-09 11:42 | NUR ---
ASSOCIATE PROFESSOR OF SOCIOLOGY NOTES SEEN AND EVALUATED BY DR CHIRINOS , DISCUSSED LABS , PT STABLE S/P HALLIE CATH INSERTION @ RIGHT FEMORAL , VERIFY IF WE NEED TO CONTINUE FREE WATER FLUSHES PT NA IS 152 , PER MD CONTINUE WATER FLUSHED AND MAINTAINANCE IVF OF D5NS @ 50ML/HR , AND PT IS FOR HD TODAY , Addendum: 11/09/20 at 1147 by LAKSHMI BURGOS RN NOTIFIED DR CHIRINOS THAT BUN IS 100 , AND PT IS FOR HD , ASKED IF HE WANTS TO ADD ALBUMIN PRN FOR HD , PER MD OK TO ADD . ORDER CARRIED OUT
[2020-11-09] MEDS: ALBUMIN 25% 25 GM in PREMIX 1 EA IV PRN (13:46)
[2020-11-09] MEDS ORDERED: PROPOFOL 200 MG/20 ML VIAL IV ONE (14:14)
--- NOTE | 2020-11-09 14:29 | NUR ---
MEDIC TECHNICIAN NOTES PT DIDNT TOLERATE HD , HR WENT DOWN TO 30 BPM 1ST DEGREE BLOCK , BP OF 66/36 , HD NURSE STOP THE TREATMENT , VSS OF ST 109 , SPO2 OF 100% VIA MECHANICAL VENT SETTINGS ORDERED , RR 27 CPM , BP OF 97/64 ON 0.03MCG/KG/MIN OF LEVOPHED . WILL NOTIFY NEPHRO .
--- NOTE | 2020-11-09 16:52 | NUR ---
MOTOR VEHICLE SALESPERSON NOTES TEMP OF 94.4 , REAGAN JOSEPH APPLIED .
--- NOTE | 2020-11-09 17:13 | NUR ---
PULL OUT OPERATOR NOTES PAGED EPIC , SPOKE WITH DR CONNER , DISCUSSED PT IS HYPOTHERMIC , NOTED WITH BLEEDING UPON SUCTINING ORALLY / ETT MODERATE IN AMOUNT , BRUISING ON THE LEFT ARM , HALLIE CATH DRESSING WITH MINIMAL BLEEDING , PER MD GIVEN VIT K 5MG SQ INJECTION , 3 UNITS OF FFP , AND ORDER CBC , CMP , BMP , PTT , PT/INR , READ BACK ORDERS , ORDERS CARRIED OUT
[2020-11-09] MEDS: NOREPINEPHRINE 32 MG in IV NS 0.9% 218 ML IV PRN (17:20)
[2020-11-09] MEDS ORDERED: PHYTONADIONE INJ 10 MG/1 ML AMPUL SQ ONE (17:30)
--- NOTE | 2020-11-09 19:00 | NUR ---
RN NOTE RECEIVED PATIENT IN BED, SEDATED, IN NO S/SX OF ACUTE DISTRESS AT THIS TIME. ON ET TUBE CONNECTED TO MECHANICAL VENT WITH SETTINGS FOLLOWS: 7.5/SECURED 25 ON THE LIP, AC 26, TV 450, FIO2 40%, PEEP 0; SR ON THE MONITOR, HR IS 62. MINIMAL AMOUNT OF REDDISH SECRETIONS SUCTIONED PER ET TUBE, AND ORALLY. OG TUBE INTACT, PLACEMENT WAS CHECKED BY AUSCULTATION AND ASPIRATION, MODERATE AMOUNT OF CLEAR, YELLOWISH RESIDUAL NOTED. H20 FLUSH WITH 400 ML DONE PER ORDERS. NOTED R GROIN HALLIE CATH INTACT, LUCINDA PICC LINE PATENT AND FLUSHING WELL, NO S/S OF INFECTION NOTED, WITH LEVOPHED INFUSING AT 0.2 MCG/KG/MIN, SANDOSTATIN AT 10 ML/HR, D5NS AT 50 ML/HR, AND DIPRIVAN AT 10 MCG/KG/HR. PAGAN CATHETER CONNECTED TO URINE BAG IN PLACE, DRAINING TO A CLEAR YELLOW OUTPUT. NOTED EDEMA ON BUE, ABDOMEN AND SCROTUM, LESIONS ON R SIDE OF ABDOMEN, AND WOUND AT SCROTUM. NOTED REAGAN HUGGER ON MEDIUM SETTINGS, CURRENT TEMP AT 96.1 DEG. ASPIRATION PRECAUTIONS, AND APPROPRIATE ISOLATION PRECAUTIONS MAINTAINED. SAFETY MEASURES IMPLEMENTED. PATIENT BED ALARM IS ON. HEAD OF BED ELEVATED. BED IS LOCKED, IN LOWEST POSITION AND SIDE RAILS UP. CALL LIGHT WITHIN REACH OF THE PATIENT. WILL CONTINUE TO MONITOR AND REASSESS FOR ANY CHANGES. Addendum: 11/09/20 at 2158 by MIK YEUNG RN H20 FLUSH NOT GIVEN DUE TO MODERATE RESIDUAL PER OG TUBE NOTED. WILL CONTINUE TO MONITOR. TOE PUNCHER MADE AWARE.
--- NOTE | 2020-11-09 20:36 | NUR ---
RECEIVED PT INTUBATED ON VENT, 7.5 ETT SECURED AT 25CM LIP LINE. SX'D SML AMT OF RED SECRETIONS. VENT ALARMS SET AND AUDIBLE. ETT CUFF CHECKED. VENT PLUGGED INTO RED OUTLET. CONTINUE TO MONITOR. Addendum: 11/09/20 at 2036 by GLENNA MONTALVO RT Amended: Links added.
[2020-11-10] VITALS (111 sets, daily range): BP systolic 49–146; BP diastolic 16–104
[2020-11-10] MEDS: PROPOFOL 100 ML IV PRN ×4 (05:01→23:43)
--- NOTE | 2020-11-10 06:43 | NUR ---
RN NOTE BLOOD DRAW FOR AM LABS POSTPONED EARLIER DUE TO ONGOING FFP. TRANSFUSION DONE AT 0630. CALLED LAB AT EXT [phone], SPOKE WITH GALEN, ADVISED TO PROCEED WITH BLOOD DRAW AT 0730. CHILD CARE TEACHER AWARE.
--- NOTE | 2020-11-10 07:09 | NUR ---
RN NOTE PATIENT REMAINS IN ROOM, VENT SETTING REMAINS FOLLOWS: AC 26, TV 450, FIO2 40%, PEEP 0. R GROIN HALLIE CATH INTACT, LUCINDA PICC LINE PATENT AND FLUSHING WELL, LEVOPHED INFUSING AT 0.2 MCG/KG/MIN, SANDOSTATIN AT 10 ML/HR, D5NS AT 50 ML/HR, AND DIPRIVAN AT 10 MCG/KG/HR. OG TUBE IN PLACE, CLAMPED. NPO STATUS, ASPIRATION AND APPROPRIATE ISOLATION PRECAUTIONS MAINTAINED. PAGAN CATHETER IN PLACE, MINIMAL OUTPUT NOTED WITHIN THE SHIFT. SAFETY MEASURES IMPLEMENTED, BED IN LOWEST POSITION, LOCKED, SIDE RAILS UP, CALL LIGHT WITHIN REACH. ALL NEEDS AND ORDERS ADDRESSED DURING THE SHIFT. PATIENT KEPT CLEAN AND COMFORTABLE WITHIN THE SHIFT. PATIENT ENDORSED TO MAGALI PETTIT FOR CONTINUATION OF CARE.
--- NOTE | 2020-11-10 07:11 | NUR ---
ICU NOTES RECEIVED PATIENT, SEDATED ON PROPOFOL @10 MCG/KG/MIN, VENTED WITH SETTING FOLLOWS: AC 26, TV 450, FIO2 40%, PEEP 0. NOTED WITH RIGHT GROIN HALLIE CATH INTACT, LUCINDA PICC LINE PATENT AND FLUSHING WELL, LEVOPHED INFUSING AT 0.2 MCG/KG/MIN, SANDOSTATIN AT 10 ML/HR, D5NS AT 50 ML/HR, OG TUBE IN PLACE, CLAMPED. NPO STATUS, ASPIRATION AND APPROPRIATE ISOLATION PRECAUTIONS MAINTAINED. PAGAN CATHETER IN PLACE, SAFETY MEASURES IMPLEMENTED, BED IN LOWEST POSITION, LOCKED, SIDE RAILS UP, CALL LIGHT WITHIN REACH. WILL CONTINUE TO MONITOR.
[2020-11-10] MEDS: PANTOPRAZOLE 40 MG VIAL IV SCH (08:10)
[2020-11-10] MEDS: CLOTRIMAZOLE 1% 15 GM TUBE TP SCH ×2 (08:10→16:30)
[2020-11-10] MEDS: RIFAXIMIN 550 MG TABLET PO SCH ×2 (08:10→16:30)
[2020-11-10 08:28] LABS: BASOPHILS % (AUTO) 0.3 % (0.0-2.0); HEMATOCRIT 26 % (39-51); LYMPHOCYTES # (AUTO) 0.4 /CMM (0.8-4.8); LYMPHOCYTES % (AUTO) 2.6 % (20.0-44.0); MEAN CORPUSCULAR HGB CONC 31 g/dl (31.0-36.0); MEAN CORPUSCULAR VOLUME 104 fL (80-96); MONOCYTES # (AUTO) 0.8 /CMM (0.1-1.30); MONOCYTES % (AUTO) 5.6 % (2.0-12.0); NEUTROPHILS # (AUTO) 13.6 /CMM (1.8-8.9); NEUTROPHILS % (AUTO) 91.5 % (43.0-81.0); PLATELET COUNT (AUTO) 75 /CMM (150-450); RED BLOOD CELL COUNT(AUTO) 2.45 MIL/uL (4.5-6.0); WHITE BLOOD COUNT (AUTO) 14.9 K/uL (4.3-11.0)
[2020-11-10 08:48] LABS: ALBUMIN 2.6 g/dL (3.4-5.0); BILIRUBIN,TOTAL 6.1 mg/dL (0.2-1.0); CALCIUM, SERUM 8.5 mg/dL (8.5-10.1); CREATININE 5.9 mg/dL (0.6-1.3); MAGNESIUM 2.9 mg/dL (1.8-2.4); PHOSPHORUS 6.8 mg/dL (2.5-4.9); POTASSIUM 4.8 mmol/L (3.5-5.1); TOTAL PROTEIN, SERUM 5.7 g/dL (6.4-8.2)
[2020-11-10] MEDS: ONDANSETRON HCL/PF 4 MG/2 ML VIAL IVP PRN ×2 (08:48→17:16)
[2020-11-10 09:21] LABS: D-DIMER 30.1 mg/L(FEU (0.17-0.50)
--- NOTE | 2020-11-10 09:30 | NUR ---
ICU NOTES RSV OF 400CC, MADE AWARE TO HOLD FLUSHES OF WATER Q4, ZOFRAN GIVEN ORDERED, WILL CONTINUE TO MONITOR.
[2020-11-10] MEDS: NOREPINEPHRINE 32 MG in IV NS 0.9% 218 ML IV PRN ×3 (10:39→23:15)
--- NOTE | 2020-11-10 11:15 | NUR ---
ICU NOTES DIALYSIS NURSE ON UNIT, WILL DIALYZE PATIENT AT BEDSIDE, VSS, ON PRESSOR, WILL CONTINUE TO MONITOR.
[2020-11-10] MEDS: OCTREOTIDE 1,250 MCG in IV NS 0.9% 247.5 ML IV PRN (11:45)
[2020-11-10 11:47] LABS: BAND % (MANUAL) 1 % (0.0-5.0); LYMPHOCYTES % (MANUAL) 2 % (16-48); MONOCYTES % (MANUAL) 5 % (0-11.0); NEUTROPHILS % (MANUAL) 92 (42-76)
[2020-11-10] MEDS: ALBUMIN 25% 25 GM in PREMIX 1 EA IV PRN (11:51)
[2020-11-10] MEDS ORDERED: IV 1/2NS 1000 ML 1,000 ML IV PRN (13:30)
--- NOTE | 2020-11-10 13:30 | NUR ---
ICU NOTES S/P DIALYSIS, VSS, 1L OF OUTPUT, WILL CONTINUE TO MONITOR.
[2020-11-10 14:26] LABS: ABG BASE EXCESS -20.4 mmol/L; ABG OXYGEN SATURATION 99.4 % (92.0-98.5); ABG PH 7.046 (7.350-7.450); ABG PO2 281.2 mmHg (75.0-100.0); AaDO2 398.8 mmHg; MetHb 4.9 % (0.0-1.5); O2Hb 94.5 % (94.0-97.0); PEEP,BG 0 cm H2O; SITE, ABG Left Radial; VT, ABG 450 mL
[2020-11-10] MEDS ORDERED: LORAZEPAM INJ 2 MG/ML VIAL IV ONE (14:30)
--- NOTE | 2020-11-10 14:30 | NUR ---
ICU NOTES PATIENT HAD A SEIZURE, HOSPITALIST MADE AWARE WITH ORDER TO GIVE ATIVAN 2MG IVP AND TO NOTIFY NEURO FOR F/U , ORDERS MADE AND CARRIED OUT, WILL CONTINUE TO MONITOR.
--- NOTE | 2020-11-10 15:35 | NUR ---
ICU NOTES SEEN AND EXAMINED BY DR. KIM WITH ORDERS OF D5W + 3 AMP OF BICARB TO RUN @100 ML/HR AND CHANGE VENT SETTING TO AC 28 AND FIO2 OF 80%, ORDERS MADE AND CARRIED OUT, WILL CONTINUE TO MONITOR.
[2020-11-10] MEDS ORDERED: Sodium Bicarbonate 100 MEQ in IV D5W 1,000 ML IV SCH (16:00)
[2020-11-10] MEDS: Sodium Bicarbonate 150 MEQ in IV D5W 1,000 ML IV SCH (16:28)
--- NOTE | 2020-11-10 18:43 | NUR ---
ICU NOTES PATIENT, SEDATED ON PROPOFOL @15 MCG/KG/MIN, VENTED WITH SETTING FOLLOWS: AC 28, TV 450, FIO2 80%, PEEP 0. NOTED WITH RIGHT GROIN HALLIE CATH INTACT, LUCINDA PICC LINE PATENT AND FLUSHING WELL, LEVOPHED INFUSING AT 0.8 MCG/KG/MIN, SANDOSTATIN AT 10 ML/HR, D5W +3AMP OF BICARB AT 100 ML/HR, OG TUBE IN PLACE, CLAMPED. NPO STATUS, ASPIRATION AND APPROPRIATE ISOLATION PRECAUTIONS MAINTAINED. PAGAN CATHETER IN PLACE, SAFETY MEASURES IMPLEMENTED, BED IN LOWEST POSITION, LOCKED, SIDE RAILS UP, CALL LIGHT WITHIN REACH. WILL ENDORSE TO COAL GRADER NURSE FOR MATEUS.
--- NOTE | 2020-11-10 20:04 | NUR ---
PAGED TURKEY CLEANER DR. ROBERT REGARDING PATIENT DECLINE IN BP. SBP DROPPED TO 40" AND PATIENT IS ALMOST AT MAX ON LEVO. DR. ROBERT ORDERED ALISON PRESSOR TO BE STARTED.
[2020-11-10] MEDS ORDERED: PHENYLEPHRINE 10 MG/ML VIAL ONE (20:11)
[2020-11-10] MEDS: PHENYLEPHRINE 100 MG in IV NS 0.9% 240 ML IV PRN (20:42)
[2020-11-10] MEDS: LORAZEPAM INJ 2 MG/ML VIAL IV PRN (23:14)
[2020-11-11] VITALS (64 sets, daily range): BP systolic 0–163; BP diastolic 0–106
[2020-11-11] MEDS ORDERED: ACETAMINOPHEN 650 MG/SUPP.RECT RC PRN (01:00)
[2020-11-11] MEDS ORDERED: PIPERACILLIN /TAZOBACTAM 2.25 G in IV D5W 50 ML IV ONE (01:30)
[2020-11-11] MEDS ORDERED: VANCOMYCIN 2 GM in IV D5W 500 ML IV ONE (01:30)
[2020-11-11] MEDS ORDERED: MIDAZOLAM HCL 100 MG in IV NS 0.9% 80 ML IV PRN (02:30)
--- NOTE | 2020-11-11 02:30 | NUR ---
PATIENT CONTINUES TO HAVE SEIZURES. ATIVAN PRN ALREADY ADMINISTERED. ON MD ROBERT ALREADY NOTIFIED. ORDERED KEPPRA IV AND VERSED DRIP.
[2020-11-11] MEDS ORDERED: VANCOMYCIN 1 GM VIAL ONE (02:31)
[2020-11-11] MEDS ORDERED: PIPERACILLIN /TAZOBACTAM 2.25 G VIAL IV ONE (02:40)
[2020-11-11] MEDS ORDERED: LEVETIRACETAM (500MG) 500 MG/5 ML VIAL IV ONE (02:48)
[2020-11-11] MEDS ORDERED: LEVETIRACETAM (500MG) 1,000 MG in IV NS 0.9% 100 ML IV SCH ×2 (03:00→21:00)
[2020-11-11] MEDS: Sodium Bicarbonate 150 MEQ in IV D5W 1,000 ML IV SCH (03:38)
[2020-11-11] MEDS: NOREPINEPHRINE 32 MG in IV NS 0.9% 218 ML IV PRN ×2 (04:21→09:00)
[2020-11-11] MEDS: LORAZEPAM INJ 2 MG/ML VIAL IV PRN (04:25)
[2020-11-11 04:28] LABS: BASOPHILS % (AUTO) 0.3 % (0.0-2.0); EOSINOPHILS % (AUTO) 0.9 % (0.0-6.0); HEMATOCRIT 26 % (39-51); HEMOGLOBIN 7.7 g/dL (13.5-17.5); LYMPHOCYTES # (AUTO) 1.2 /CMM (0.8-4.8); LYMPHOCYTES % (AUTO) 8.9 % (20.0-44.0); MEAN CORPUSCULAR HGB CONC 30 g/dl (31.0-36.0); MEAN CORPUSCULAR VOLUME 111 fL (80-96); MONOCYTES # (AUTO) 0.7 /CMM (0.1-1.30); MONOCYTES % (AUTO) 4.8 % (2.0-12.0); NEUTROPHILS # (AUTO) 11.6 /CMM (1.8-8.9); NEUTROPHILS % (AUTO) 85.1 % (43.0-81.0); PLATELET COUNT (AUTO) 87 /CMM (150-450); WHITE BLOOD COUNT (AUTO) 13.7 K/uL (4.3-11.0)
[2020-11-11 05:33] LABS: MAGNESIUM 3.4 mg/dL (1.8-2.4)
[2020-11-11 05:35] LABS: PHOSPHORUS 10.2 mg/dL (2.5-4.9)
--- NOTE | 2020-11-11 05:55 | NUR ---
PATIENT CONTINUES TO HAVE MULTIPLE SEIZURES. MD FLIGHT TEST SUPERVISOR AWARE.
--- NOTE | 2020-11-11 06:21 | NUR ---
PATIENT SEVERELY DETERIORATING. PUPILS NOT REACTIVE AND DILATED.
[2020-11-11 06:25] LABS: BAND % (MANUAL) 49 % (0.0-5.0); LYMPHOCYTES % (MANUAL) 7 % (16-48); METAMYELOCYTES % 4 % (0-0); MONOCYTES % (MANUAL) 2 % (0-11.0); MYELOCYTES % 1 % (0-0); NEUTROPHILS % (MANUAL) 35 (42-76); PROMYELOCYTES % 2 % (0-0)
[2020-11-11] MEDS ORDERED: VANCOMYCIN 500 MG in IV D5W 100 ML IV PRN (06:30)
[2020-11-11] MEDS: PHENYLEPHRINE 100 MG in IV NS 0.9% 240 ML IV PRN (07:00)
[2020-11-11] MEDS: PANTOPRAZOLE 40 MG VIAL IV SCH (07:37)
[2020-11-11] MEDS: OCTREOTIDE 1,250 MCG in IV NS 0.9% 247.5 ML IV PRN (07:43)
--- NOTE | 2020-11-11 07:46 | NUR ---
Received pt in critical condition, unresponsive to deep stimulation, persistent seizures with 1-2 minutes of relapse, pupils very dilated +5. and sluggish, generalized cyanosis of the skin with extensive areas mottled and cool to touch, scrotum edema, with excoriation and non-healing pressure ulcer to the back. pt is on two pressors (levo @b1 mcg/kg/min, Phenylephrine @ 2.4 mcg/kg/min) Sodium bicar @ 100 ml/hr, octreotide infusing at 50 mcg/hr. Pt is mechanically vented, AC 28, 100%, 450, PEEP 0. pt remain critically guarded, deteriorating, labs value, with bp trending despite pressors almost at max rate. delarosa in place with zero output, R femoral dailysis cath in place with mild bloody drainage. Pt also bleeding moderately from the scrotum and the penis, L. upper arm PICC line in place patent without any complication and infusing. Addendum: 11/11/20 at 0804 by WEDNESDAY Roberth GUTIERREZ RN pharmacy called for Midazolam infusion due to ongoing sedation and need for sedation due vent asynchrony
[2020-11-11] MEDS: PROPOFOL 100 ML IV PRN (08:59)
[2020-11-11] MEDS ORDERED: VASOPRESSIN INJ 40 UNIT in IV NS 0.9% 38 ML IV PRN (09:00)
[2020-11-11] MEDS ORDERED: PIPERACILLIN /TAZOBACTAM 2.25 G in IV D5W 50 ML IV SCH (09:00)
[2020-11-11] MEDS ORDERED: LEVETIRACETAM (500MG) 1,500 MG in IV NS 0.9% 100 ML IV SCH (09:00)
[2020-11-11] MEDS ORDERED: LEVETIRACETAM (500MG) 2,000 MG in IV NS 0.9% 100 ML IV ONE (09:00)
[2020-11-11] MEDS ORDERED: [UNRECOGNIZED DRUG - REMARK] IV SCH (09:00)
[2020-11-11] MEDS: RIFAXIMIN 550 MG TABLET PO SCH (09:09)
[2020-11-11] MEDS: CLOTRIMAZOLE 1% 15 GM TUBE TP SCH (09:10)
--- NOTE | 2020-11-11 11:57 | NUR ---
Exactly at 11:50 am pt was noted with no signs of life, no respiratory effort, no response to any stimuli and supraorbital pressure, absence of heart sound/tone during 3 minutes of auscultation, absence of carotid and femoral pulses/complete absence of pulse, pupils fixed and dilated bilaterally. complete cessation of breathing. Giving the complete absence of signs of life, pt declared at 11:50 am. All infusion stopped at 11:53 am, Dr. Linares made aware. Family to be notified, one legacy to be made aware.
== END 2020-11-11 17:15 | disposition expired | DRG 279 ==
LOC: ER 08:33 → TRANSITION 14:16 → TELE 20:00 → MED 10-23 11:35 → TELE 10-27 22:49 → ICU 10-28 10:49 → MED 10-30 17:58 → ICU 11-01 11:16 → TELE 11-04 10:53 → MED 11-05 11:29 → ICU 11-06 14:05 → ICUOV 11-06 15:39 → ICU 11-06 18:23
PROVIDERS: ATTEND Internal Medicine
PROC: 0W9G3ZZ Drainage of Peritoneal Cavity, Percutaneous Approach (ICD-10-PCS; principal; 2020-10-22)
PROC: 05H933Z Insertion of Infusion Device into Right Brachial Vein, Percutaneous Approach (ICD-10-PCS; 2020-10-27)
PROC: 0BH18EZ Insertion of Endotracheal Airway into Trachea, Via Natural or Artificial Opening Endoscopic (ICD-10-PCS; 2020-11-08)
PROC: 5A1945Z Respiratory Ventilation, 24-96 Consecutive Hours (ICD-10-PCS; 2020-11-08)
PROC: 0DJ08ZZ Inspection of Upper Intestinal Tract, Via Natural or Artificial Opening Endoscopic (ICD-10-PCS; 2020-11-08)
PROC: 30233N1 Transfusion of Nonautologous Red Blood Cells into Peripheral Vein, Percutaneous Approach (ICD-10-PCS; 2020-11-08)
PROC: 30233K1 Transfusion of Nonautologous Frozen Plasma into Peripheral Vein, Percutaneous Approach (ICD-10-PCS; 2020-11-09)
PROC: 06HY33Z Insertion of Infusion Device into Lower Vein, Percutaneous Approach (ICD-10-PCS; 2020-11-09)
DX: K72.00 Acute and subacute hepatic failure without coma (principal); K70.31 Alcoholic cirrhosis of liver with ascites; N17.0 Acute kidney failure with tubular necrosis; N18.9 Chronic kidney disease, unspecified; Z68.37 Body mass index [BMI] 37.0-37.9, adult; E87.1 Hypo-osmolality and hyponatremia; D69.6 Thrombocytopenia, unspecified; D69.59 Other secondary thrombocytopenia; D63.8 Anemia in other chronic diseases classified elsewhere; E43 Unspecified severe protein-calorie malnutrition; K76.6 Portal hypertension; F41.9 Anxiety disorder, unspecified; D61.818 Other pancytopenia; E87.6 Hypokalemia; G40.901 Epilepsy, unspecified, not intractable, with status epilepticus; G92 Toxic encephalopathy; N13.9 Obstructive and reflux uropathy, unspecified; K76.7 Hepatorenal syndrome; E87.0 Hyperosmolality and hypernatremia; I70.0 Atherosclerosis of aorta; J96.01 Acute respiratory failure with hypoxia; K42.9 Umbilical hernia without obstruction or gangrene; K40.90 Unilateral inguinal hernia, without obstruction or gangrene, not specified as recurrent; K72.10 Chronic hepatic failure without coma; M89.9 Disorder of bone, unspecified; Z91.14 Patient's other noncompliance with medication regimen; R13.10 Dysphagia, unspecified; Z93.1 Gastrostomy status; Z20.822 Contact with and (suspected) exposure to COVID-19; N50.89 Other specified disorders of the male genital organs; N62 Hypertrophy of breast; F05 Delirium due to known physiological condition; K25.9 Gastric ulcer, unspecified as acute or chronic, without hemorrhage or perforation; K80.20 Calculus of gallbladder without cholecystitis without obstruction; I48.91 Unspecified atrial fibrillation; E87.4 Mixed disorder of acid-base balance; Z66 Do not resuscitate; A41.9 Sepsis, unspecified organism; R65.21 Severe sepsis with septic shock
CPT/HCPCS: 31720; 36415; 36600; 70450-TC; 71045-TC; 76942-TC; 80048-TC; 80053-TC; 80061-TC; 80076-TC; 82040-TC; 82140-TC; 82550-TC; 82570-TC; 82728-TC; 82803-TC; 82962-TC; 83540-TC; 83690-TC; 83735-TC; 83970; 84100-TC; 84155; 84155-TC; 84165; 84300-TC; 84443-TC; 85025-TC; 85396; 85610-TC; 85730-TC; 86850-TC; 87040-TC; 87070-TC; 87081-TC; 88108-TC; 88305-TC; 89051-TC; 90935-TC; 92526; 92611-TC; 94003-TC; 94760-TC; 97112-TC; 97530-TC; A4216; A6253; A6403; C1750; C9113; G0378; J1953; J2060; J2250; J2354; J2370; J2405; J2543; J2704; J3370; J3430; J3480; J3490; J7030; J7040; J7042; J7050; J7060; J7070; P9016-BL; P9017-BL; P9047